=== PATIENT | male | born 1960 | race Caucasian/White ===

== ENCOUNTER → 2018-05-04 15:15 | Outpatient (CLI) | payer OTHER, SELFPAY ==
--- NOTE | 2018-05-04 | DI.MRI.S_ITS ---
PROCEDURE: MR HEAD/BRAIN WO/W CON INDICATIONS: MEMORY IMPAIRMENT TECHNIQUE: Noncontrast axial T1 spin echo, axial T2 fast spin echo, sagittal and axial FLAIR, coronal T2 fast spin echo, axial gradient echo, axial diffusion and ADC through the brain. After the administration of contrast, axial and coronal 3D VIBE or T1 spin echo with fat saturation through the brain. COMPARISON: None. FINDINGS: Image quality: Excellent. CSF Spaces: Basal cisterns are patent. No extra-axial fluid collections. Ventricles are normal in size and shape. Brain: No midline shift. No intracranial bleeds or masses. No abnormal intracranial enhancement. Mild scattered foci of T2 weighted hyperintensity are seen, which are attributed to early chronic small vessel ischemic change in a patient of this age. The brainstem appears normal. Diffusion-weighted images demonstrate no acute ischemic insults. No chronic ischemic insults. Normal intravascular flow voids are present. Skull and face: Calvarial marrow is normal in signal. Orbits appear normal. Sinuses: Moderate mucosal thickening is seen within the right maxillary sinus. There is a mucous retention cyst seen involving the left maxillary sinus. Mild mucosal thickening is seen elsewhere within the paranasal sinuses. Moderate to prominent abnormal fluid can be seen within the mastoid air cells. IMPRESSION: No significant intracranial abnormality is detected. Mild early chronic small vessel ischemic change can be seen. Paranasal sinus disease is seen, which is most prominent within the right maxillary sinus. Moderate to prominent abnormal mastoid air cell fluid seen on both sides. Please correlate for potential clinical findings of mastoiditis. Dictated by: Jewel Palacios M.D. on 05/04/2018 at 16:06 Approved by: Jewel Palacios M.D. on 05/04/2018 at 16:08
== END ==
PROVIDERS: PCP Family Medicine; Visit Provider Family Medicine
DX: R41.3 Other amnesia (principal); J32.0 Chronic maxillary sinusitis
CPT/HCPCS: 70553

== ENCOUNTER 2018-09-04 11:43 | Day surgery (SDC) | payer OTHER, SELFPAY ==
[2018-09-04] VITALS (7 sets, daily range): BP systolic 103–137; BP diastolic 70–94; PULSE 63–79; RESP 12–16; TEMP 36.2–36.9; O2SAT 93–98; BMI 26.1
--- NOTE | 2018-09-04 | PATH_ITS ---
[facility] Accession Number: [id number] . 01 Material submitted: . PART A: DUODENUM AND ANTRUM BIOPSIES PART B: GE JUNCTION BIOPSY PART C: COLON POLYP AT 55CM . 02 Diagnosis: A. Biopsies, Duodenum and Gastric Antrum: Mucosal hyperemia without associated significant inflammation involving duodenal and antral mucosa. Negative for evidence of Helicobacter on H/E stain. Negative for intestinal metaplasia of antral mucosa. Negative for dysplasia and malignancy. . B. Gastroesophageal Junction, Biopsies: Fragments of gastric cardia-type mucosa with mild chronic inflammation. No squamous epithelium identified. Negative for evidence of Helicobacter on H/E stain. Negative for intestinal metaplasia. Negative for dysplasia and malignancy. . C. Biopsy, Colon Polyp at 55 cm: Single polypoid-shaped fragment of colon mucosa associated with prominent mucosal lymphoid aggregate. Negative for dysplasia and malignancy. MRV/09/06/2018 . 02 Electronically signed: . Erick Rodgers MD, Pathologist NPI- [id number] . 01 Gross description: . (A) Received in formalin, labeled duodenum / antrum BX, are two fragments of perry-mcclure tissue (each approximately 0.4 x 0.2 x 0.1 cm). Entirely submitted in cassette A1. (B) Received in formalin, labeled GE junction BX, are two fragments of perry-white tissue (each approximately 0.3 x 0.1 x 0.1 cm). Entirely submitted in cassette B1. (C) Received in formalin, labeled polyp @ 55 cm, are three fragments of perry-mcclure tissue (0.8 x 0.2 x 0.1 cm in aggregate). Entirely submitted in cassette C1. ([id number]) /MRV . 02 Pathologist provided ICD-10: K63.5 . 02 CPT . 804004, [id number], [id number] Performed at: 01 [facility] [address] [place] [address], [place], [place] [id number] MD Troy Monaco MD Phone: [phone] Performed at: 02 [facility] [address] [place], [place] [id number] MD Oksana Do MD Phone: [phone]
[2018-09-04] MEDS: SODIUM CHLORIDE 0.9% 1,000 ML 150 ML IV (12:48)
[2018-09-04] MEDS: LIDOCAINE 4% SOLN 50 ML 20 ML TOP (13:00)
--- NOTE | 2018-09-04 13:00 | PM.PREOP ---
Pre-operative Note Interval Note History & Physical reviewed/Exam performed by Physician: Yes Changes to H&P: No
[2018-09-04] MEDS: TETRACAINE/BENZOCAINE/BUTAMBEN (CETACAINE) BOTTLE 1 SPRAY TOP (13:01)
[2018-09-04] MEDS: MIDAZOLAM 5 MG/5 ML VIAL IV (13:23)
[2018-09-04] MEDS: fentaNYL 250 MCG/5 ML INJ IV (13:23)
--- NOTE | 2018-09-04 13:44 | P.OP_ITS ---
Operative Date/Time/Diagnoses Date of procedure: 09/04/18 Time of procedure: 13:40 Pre-op diagnosis: Anemia Screening Post-op diagnosis: same Procedure & Clinicians Procedure: Esophagogastroduodenoscopy with biopsies and colonoscopy to the cecum with polypectomy x1 Same procedure as scheduled: Yes Indications: No prior colonoscopy History of anemia Surgeon: Taylor Larsen Click Yes if Unassisted: Yes Anesthesia Type: Sedation (Versed 7 mg; fentanyl 200 mcg) Operative Notes Findings: 1. Mild duodenitis 2. Gastritis with several 2-3 mm ulcers in the antrum and fundus covered with fibrinous exudate 3. Very large hiatal hernia-approximately 10 cm with the esophageal hiatus at 40 cm and the mucosal junction at 30 cm. 4. Irregular Z-line with tongues of tissue could visually consistent with Benites's changes 5. Normal posterior oropharynx but unable to visualize the vocal cords well 6. Excellent prep 7. 3-4 mm sessile polyp at 55 cm from the anal verge. Removed with cold forcep s and retained for pathology 8. Short-segment diverticulosis with a few large pockets scattered between 20 and 35 cm from the anal verge Estimated Blood Loss (mL): 1 Procedure in detail: After obtaining informed consent, the patient was brought to the GI suite and placed in the left lateral decubitus position on the examina tion table. After placement of appropriate monitors, the patient was given incremental doses of Versed and Fentanyl until an appropriate level of sedation was achieved. A time out was held per SCOAP protocol. We began with EGD. A bite block was gently placed between the patient's teeth. The endoscope was lubricated and then passed into the patient's posterior oropharynx. The esophagus was cannulated under direct vision and the scope was passed to the second portion of the duodenum without difficulty. The scope was then withdrawn with careful examination of all areas of the upper GI tract and mucosa. In the stomach, the instrument was retroflexed and the GE junction examined. The scope was straightened and the procedure continued with examination of the remainder of the upper GI tract. Findings are noted above. Air was aspirated from the stomach and the endoscope gently removed from the esophagus. The examination table was turned and we continued with the colonoscopy. A digital rectal examination was performed and did not reveal any masses or obstructing lesions. The colonoscope was gently passed into the patient's anus and the entire colon navigated to the level of the cecum with minimal difficulty. Once in the cecum, the scope was withdrawn being sure to go before and beyond all mucosal folds and prominences and get an excellent examination. The findings are noted above. At the level of the rectal vault, the scope was retroflexed and the internal anal canal was examined. The scope was straightened and air aspirated from the colon. The instrument was removed from the patient's body and the procedure was concluded. The patient was allowed to awaken from sedation without difficulty and taken to the post-anesthesia care unit in good condition. Total sedation time was 34 min Total colonoscopy withdrawal time was 8 min and 31 sec Complications: none Condition: stable Disposition: PACU Plan for aftercare: 1. Discharge to home 2. We will contact you with pathology results and recommendations 3. Tentatively planned for next colonoscopy in 5 years or as clinically indicated 4. Increase omeprazole does to 20 mg twice daily. 5. Consider an alternative to meloxicam
--- NOTE | 2018-09-04 14:11 | SUR.PHASEII ---
brought in, pt still sedated, wakes easily, follows commands. VSS. d/c instructions discussed, both voiced an understanding.
--- NOTE | 2018-09-04 15:19 | SUR.PHASEII ---
Late entry: pt wanting to go home, assisted to dress by . pt steady when up, belly soft and no nausea. vss. Pt left unit in stable condiiton.
== END 2018-09-04 15:10 ==
PROVIDERS: PCP Family Medicine; Visit Provider Surgery
PROC: 0DJ08ZZ Inspection of Upper Intestinal Tract, Via Natural or Artificial Opening Endoscopic (ICD-10-PCS; CPT 43235; principal; 2018-09-04 13:00)
PROC: 0DJD8ZZ Inspection of Lower Intestinal Tract, Via Natural or Artificial Opening Endoscopic (ICD-10-PCS; CPT 45378; 2018-09-04 13:00)
DX: Z12.11 Encounter for screening for malignant neoplasm of colon (principal); D64.9 Anemia, unspecified; K29.70 Gastritis, unspecified, without bleeding; K29.80 Duodenitis without bleeding; K44.9 Diaphragmatic hernia without obstruction or gangrene; K57.30 Diverticulosis of large intestine without perforation or abscess without bleeding; K63.5 Polyp of colon
CPT/HCPCS: 45380; 43239; 99152; 99153; J2250; J3010

== ENCOUNTER → 2021-12-02 12:29 | Outpatient (CLI) | payer OTHER, SELFPAY ==
--- NOTE | 2021-12-02 12:35 | DI.RAD.S_ITS ---
PROCEDURE: XR LUMBAR SPINE 2-3V INDICATIONS: PAIN IN BACK TECHNIQUE: 3 views of the lumbar spine were acquired. COMPARISON: None. FINDINGS: Bones: 5 [id number] vertebrae are present. There is normal bony alignment. Mild multilevel disc space narrowing and endplate osteophyte formation, as well as facet hypertrophy throughout the mid and lower lumbar spine. No vertebral body compression fractures. No suspicious bony lesions. Soft tissues: Overlying bowel gas pattern is normal. No suspicious soft tissue calcifications. IMPRESSION: Multilevel degenerative disc and facet disease. No acute fracture. No osseous lesion. If symptoms and/or clinical suspicion for pathology persist, further assessment with repeat, or advanced imaging (e.g., CT, MRI, or bone scan) may be helpful for further assessment. Dictated by: Honorio Polo M.D. on 12/02/2021 at 13:53 Approved by: Honorio Polo M.D. on 12/02/2021 at 13:54
== END ==
PROVIDERS: Family Provider Family Medicine; PCP Family Medicine; Referring Provider Family Medicine; Visit Provider Family Medicine
DX: M51.36 Other intervertebral disc degeneration, lumbar region (principal); M54.50 Low back pain, unspecified
CPT/HCPCS: 72100

== ENCOUNTER 2022-01-20 08:15 | Outpatient (RCR) | payer OTHER, SELFPAY ==
--- NOTE | 2021-11-10 14:35 | PT.OIE ---
Current Diagnoses Parkinson's disease (11/10/21) Dorsalgia, unspecified (11/10/21) Visit Care Team Role Provider Type Miguel A Peng MD Attending Provider Physician Family Provider Primary Care Provider Referring Provider Specialty: Family Practice Address: [address] [place] [address], [id number] Email: [email or web address] Physical Therapy Initial Evaluation PT-OP-A Visit Information Start: 11/03/21 16:13 Freq: Status: Active Protocol: Document 11/10/21 09:00 AMB (Rec: 11/10/21 10:15 AMB [id number]) Out-Patient Physical Therapy Visit Information Visit Information Visit Type Initial Evaluation Visit Start Time 09:00 Visit Stop Time 09:45 Total Visit Minutes 45 Visit Number 1 PT-OP-B Current Condition Start: 11/03/21 16:13 Freq: Status: Active Protocol: Document 11/10/21 09:04 AMB (Rec: 11/10/21 09:20 AMB [id number]) Current Condition History of Current Condition Onset Date 2 years Current Complaints back pain/Parkinsons History of Current Condition Mirza has had Parkinsons for at least the last 3 years, works at [employer] which increases back pain. Works 24 hrs/week (reducing hours due to pain and difficulty moving with PD) . Lives with his who is having her own medical issues. 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 Previous PT helped a little mostly stretches. Back pain can go down the legs at times, but not always. In general feels better when moving, worst pain is when stationary (sitting). Treatment Goals Patient/Caregiver Goals Reduce back pain Prior Functional Status Baseline Function- ADL's Modified Independent Baseline Function- Mobility Modified Independent Current Functional Impairments (Reported) Functional Limitations- Mobility/Gait Limited in gait distance Functional Limitations- Work/School Difficulty reaching, climbs ladders at works Functional Limitations- Recreation/ Pain with sitting Hobbies Personal Factors Other Personal Factors That May Effect Parkinsons Therapy/Recovery PT-OP-E Functional Tests Start: 11/03/21 16:13 Freq: Status: Active Protocol: Document 11/10/21 10:22 AMB (Rec: 11/10/21 10:27 AMB [id number]) Functional Tests Five Times Sit to Stand Test Score 18 Comments no UE support Timed Up and Go (TUG) Score 17 Comments no AD TUG Impairment Rating 60 to <80% Impaired (Score 16- 17) PT-OP-G Mobility & Gait Start: 11/03/21 16:13 Freq: Status: Active Protocol: Document 11/10/21 10:22 AMB (Rec: 11/10/21 10:27 AMB [id number]) OP Mobility Evaluation Bed Mobility Rolling reports difficulty getting out of bed, dagmar managing sheets OP Gait Assessment Comments Gait Comments Enbloc gait without armswing, toe catching, no AD PT-OP-J Posture/Palpation/Skin Start: 11/03/21 16:13 Freq: Status: Active Protocol: Document 11/10/21 10:22 AMB (Rec: 11/10/21 10:27 AMB [id number]) Posture Evaluation Comments Posture Comments Moderate/severe thoracic kyphosis with L shoulder high in standing and forward/ laterally tilted head, right ribs more prominent with forward flexion Palpation Assessment Location One Palpation Location L>R QL Palpation Findings Soft Tissue Tightness,Muscle Guarding,Tenderness PT-OP-K Range of Motion Start: 11/03/21 16:13 Freq: Status: Active Protocol: Document 11/10/21 10:22 AMB (Rec: 11/10/21 10:27 AMB [id number]) Lumbar Spine Range of Motion Lumbar Spine Active Percentage Testing Position Standing Flexion 50 Extension 25 Lateral Flexion Left 50 Lateral Flexion Right 50 PT-OP-T Assessment and Plan Start: 11/03/21 16:13 Freq: Status: Active Protocol: Document 11/10/21 09:00 AMB (Rec: 11/10/21 10:31 AMB [id number]) Physical Therapy Assessment Rehab Potential Rehabilitation Potential Good Evaluation Complexity Number of Personal Factors/Comorbidities 1-2 Number of Body Systems Impaired 4 or More Clinical Presentation at Evaluation Evolving Impairments Impairments Activity Tolerance,Functional Activities,Pain,Posture,ROM Goals Four Impairment Gait Short Term Goal (STG) Mirza will improve his timed up and go score to less than 12 seconds to show a decreased risk of falling. STG Duration 4 weeks Party Plan Sales Unit Sales Leader Goal (LTG) Mirza will ambulate for 6 minutes over smooth terrain for at least 1,600ft to meet norms for men in their 60s. LTG Duration 12 weeks Three Impairment Pain Short Term Goal (STG) Mirza will perform a full squat with good body mechanics without an increase in his back pain. STG Duration 4 weeks Party Plan Sales Unit Sales Leader Goal (LTG) Mirza will work 8 hours with 4 /10 back pain or less. LTG Duration 12 weeks Two Impairment HEP Short Term Goal (STG) Mirza will be independent and consistent with an exercise program to improve his mobility. STG Duration 4 weeks One Impairment Transfers Short Term Goal (STG) Mirza will perform all bed mobility with 2/10 back pain or less. STG Duration 4 weeks Shelter Goal (LTG) Mirza will improve his 5x sit to stand time to 14 seconds. Assessment Summary Assessment Mirza attends physical therapy with worsening back pain. 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 He finds movement to be helpful for his pain, and feels the worst when he has been stationary. He presents with significant thoracic kyphosis, and gait changes consistent with at least moderate Parkinson's ( shuffling gait pattern, lack of any arm swing). He will benefit from physical therapy to help him improve his lumbar and thoracic mobility, decrease his pain and improve his overall mobility considering both his pain and his progressive neurological disease. Physical Therapy Plan Frequency and Duration Frequency of Treatment 2x/Week Duration of Treatment 12 weeks Plan of Care Start Date 11/10/21 Plan of Care End Date 02/02/22 Therapeutic Interventions Therapeutic Interventions Balance Training,Coordination Training,Gait Training,Home Exercise Program,Joint Mobilizations,Manual Therapy, Neuromuscular Re-education, Self-Care/Home Management, Therapeutic Activities, Therapeutic Exercises Modalities Cold Pack/Ice Massage,Electric Stimulation,Hot Packs Next Visit Focus/Plan Next Note Type Treatment Note Next Visit Plan Review beginning HEP: forward bend and forward rocking, pt requests manual therapy
--- NOTE | 2021-11-10 14:39 | PT.OPPOC ---
Physical, Occupational & Speech Therapy At [facility] Current Diagnoses Parkinson's disease (11/10/21) Dorsalgia, unspecified (11/10/21) Visit Care Team Role Provider Type Miguel A Peng MD Attending Provider Physician Family Provider Primary Care Provider Referring Provider Specialty: [facility] Practice Address: [address] [place] [address], [facility] Email: [email or web address] Plan Of Care PT-OP-T Assessment and Plan Start: 11/03/21 16:13 Freq: Status: Active Protocol: Document 11/10/21 09:00 AMB (Rec: 11/10/21 10:31 AMB [id number]) Physical Therapy Assessment Rehab Potential Rehabilitation Potential Good Evaluation Complexity Number of Personal Factors/Comorbidities 1-2 Number of Body Systems Impaired 4 or More Clinical Presentation at Evaluation Evolving Impairments Impairments Activity Tolerance,Functional Activities,Pain,Posture,ROM Goals Four Impairment Gait Short Term Goal (STG) Mirza will improve his timed up and go score to less than 12 seconds to show a decreased risk of falling. STG Duration 4 weeks Senior Living Goal (LTG) Mirza will ambulate for 6 minutes over smooth terrain for at least 1,600ft to meet norms for men in their 60s. LTG Duration 12 weeks Three Impairment Pain Short Term Goal (STG) Mirza will perform a full squat with good body mechanics without an increase in his back pain. STG Duration 4 weeks Art Instructor Goal (LTG) Mirza will work 8 hours with 4 /10 back pain or less. LTG Duration 12 weeks Two Impairment HEP Short Term Goal (STG) Mirza will be independant and consistent with an exercise program to improve his mobility. STG Duration 4 weeks One Impairment Transfers Short Term Goal (STG) Mirza will perform all bed mobility with 2/10 back pain or less. STG Duration 4 weeks Art Instructor Goal (LTG) Mirza will improve his 5x sit to stand time to 14 seconds. Assessment Summary Assessment Mirza attends physical therapy with worsening back pain. 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 He finds movement to be helpful for his pain, and feels the worst when he has been stationary. He presents with significant thoracic kyphosis, and gait changes consistent with at least moderate Parkinson's ( shuffling gait pattern, lack of any arm swing). He will benefit from physical therapy to help him improve his lumbar and thoracic mobility, decrease his pain and improve his overall mobility considering both his pain and his progressive neurological disease. Physical Therapy Plan Frequency and Duration Frequency of Treatment 2x/Week Duration of Treatment 12 weeks Plan of Care Start Date 11/10/21 Plan of Care End Date 02/02/22 Therapeutic Interventions Therapeutic Interventions Balance Training,Coordination Training,Gait Training,Home Exercise Program,Joint Mobilizations,Manual Therapy, Neuromuscular Re-education, Self-Care/Home Management, Therapeutic Activities, Therapeutic Exercises Modalities Cold Pack/Ice Massage,Electric Stimulation,Hot Packs Next Visit Focus/Plan Next Note Type Treatment Note Next Visit Plan Review beginning HEP: forward bend and forward rocking, pt requests manual therapy Plan of Care Dates Plan of Care Start Date 11/10/21 Plan of Care End Date 02/02/22 Electronically Signed by: Rain Tsai, PT 11/12/21 1541 If you are in agreement with this Plan of Care, please return a signed and dated copy. I have reviewed this Plan of Care and certify that the skilled therapy services above are required to meet the patient?s needs. Physician Signature Date Printed Name and Credentials Clinical Instructor Signature Printed Name and Credentials
--- NOTE | 2021-11-22 13:46 | PT.OTN ---
Current Diagnoses Parkinson's disease (11/22/21) Dorsalgia, unspecified (11/22/21) Physical Therapy Treatment Note PT-OP-A Visit Information Start: 11/03/21 16:13 Freq: Status: Active Protocol: Document 11/22/21 10:38 AMB (Rec: 11/22/21 10:47 AMB [id number]) Out-Patient Physical Therapy Visit Information Visit Information Visit Type Treatment Note Visit Start Time 10:30 Visit Stop Time 11:15 Total Visit Minutes 45 Visit Number 2 PT-OP-B Current Condition Start: 11/03/21 16:13 Freq: Status: Active Protocol: Document 11/10/21 09:04 AMB (Rec: 11/10/21 09:20 AMB [id number]) Current Condition History of Current Condition Onset Date 2 years Current Complaints back pain/Parkinsons History of Current Condition Mirza has had Parkinsons for at least the last 3 years, works at [employer] which increases back pain. Works 24 hrs/week (reducing hours due to pain and difficulty moving with PD) . Lives with his who is having her own medical issues. 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 Previous PT helped a little mostly stretches. Back pain can go down the legs at times, but not always. In general feels better when moving, worst pain is when stationary (sitting). Treatment Goals Patient/Caregiver Goals Reduce back pain Prior Functional Status Baseline Function- ADL's Modified Independent Baseline Function- Mobility Modified Independent Current Functional Impairments (Reported) Functional Limitations- Mobility/Gait Limited in gait distance Functional Limitations- Work/School Difficulty reaching, climbs ladders at works Functional Limitations- Recreation/ Pain with sitting Hobbies Personal Factors Other Personal Factors That May Effect Parkinsons Therapy/Recovery PT-OP-C Subjective Start: 11/03/21 16:13 Freq: Status: Active Protocol: Document 11/22/21 10:38 AMB (Rec: 11/22/21 10:47 AMB [id number]) OP-PT Subjective Patient Comments Patient Comments iMrza reports continued feeling of intermittent decreased foot sensation PT-OP-E Functional Tests Start: 11/03/21 16:13 Freq: Status: Active Protocol: Document 11/10/21 10:22 AMB (Rec: 11/10/21 10:27 AMB [id number]) Functional Tests Five Times Sit to Stand Test Score 18 Comments no UE support Timed Up and Go (TUG) Score 17 Comments no AD TUG Impairment Rating 60 to <80% Impaired (Score 16- 17) PT-OP-G Mobility & Gait Start: 11/03/21 16:13 Freq: Status: Active Protocol: Document 11/10/21 10:22 AMB (Rec: 11/10/21 10:27 AMB [id number]) OP Mobility Evaluation Bed Mobility Rolling reports difficulty getting out of bed, dagmar managing sheets OP Gait Assessment Comments Gait Comments Enbloc gait without armswing, toe catching, no AD PT-OP-J Posture/Palpation/Skin Start: 11/03/21 16:13 Freq: Status: Active Protocol: Document 11/10/21 10:22 AMB (Rec: 11/10/21 10:27 AMB [id number]) Posture Evaluation Comments Posture Comments Moderate/severe thoracic kyphosis with L shoulder high in standing and forward/ laterally tilted head, right ribs more prominent with forward flexion Palpation Assessment Location One Palpation Location L>R QL Palpation Findings Soft Tissue Tightness,Muscle Guarding,Tenderness PT-OP-K Range of Motion Start: 11/03/21 16:13 Freq: Status: Active Protocol: Document 11/10/21 10:22 AMB (Rec: 11/10/21 10:27 AMB [id number]) Lumbar Spine Range of Motion Lumbar Spine Active Percentage Testing Position Standing Flexion 50 Extension 25 Lateral Flexion Left 50 Lateral Flexion Right 50 PT-OP-Q Treatments Start: 11/03/21 16:13 Freq: Status: Active Protocol: Document 11/22/21 09:00 AMB (Rec: 11/22/21 13:46 AMB [id number]) Therapeutic Activity Therapeutic Activity 1 Name bed mobility Comments Cued using momemtum, log roll and sidelying to sit. Increased pain even on firm table. Manual Therapy Treatment Soft Tissue Mobilization 1 Body Location paraspinals Mobilization Type Cross-Friction,Myofascial Release Body Position Sidelying Neuro Re-Education Treatment Coordination Activities seated roatation Reps/Duration 5 ea direction fwd bend Reps/Duration 10 ea Comments with shoulders below 90 degree abduction for pain rock and reach Reps/Duration 10 ea Comments holding on to kitchen counter PT-OP-T Assessment and Plan Start: 11/03/21 16:13 Freq: Status: Active Protocol: Document 11/22/21 09:00 AMB (Rec: 11/22/21 13:46 [facility] [id number]) Physical Therapy Assessment Goals Four Impairment Gait Short Term Goal (STG) Mirza will improve his timed up and go score to less than 12 seconds to show a decreased risk of falling. STG Duration 4 weeks Method Consultant Goal (LTG) Mirza will ambulate for 6 minutes over smooth terrain for at least 1,600ft to meet norms for men in their 60s. LTG Duration 12 weeks Three Impairment Pain Short Term Goal (STG) Mirza will perform a full squat with good body mechanics without an increase in his back pain. STG Duration 4 weeks Method Consultant Goal (LTG) Mirza will work 8 hours with 4 /10 back pain or less. LTG Duration 12 weeks Two Impairment HEP Short Term Goal (STG) Mirza will be independant and consistent with an exercise program to improve his mobility. STG Duration 4 weeks One Impairment Transfers Short Term Goal (STG) Mirza will perform all bed mobility with 2/10 back pain or less. STG Duration 4 weeks Method Consultant Goal (LTG) Mirza will improve his 5x sit to stand time to 14 seconds. Assessment Summary Assessment Mirza showed difficulty initiating movement, difficulty with posture, did do better once going with exercises today and does appreciate manual therapy. Will need to work on body mechanics, bed mobility more as this does increase his pain . Physical Therapy Plan Next Visit Focus/Plan Next Note Type Treatment Note Next Visit Plan Review beginning HEP: forward bend and forward rocking, pt requests manual therapy
--- NOTE | 2021-11-24 11:21 | PT.OTN ---
Current Diagnoses Parkinson's disease (11/24/21) Dorsalgia, unspecified (11/24/21) Physical Therapy Treatment Note PT-OP-A Visit Information Start: 11/03/21 16:13 Freq: Status: Active Protocol: Document 11/24/21 09:09 AMB (Rec: 11/24/21 09:57 AMB [id number]) Out-Patient Physical Therapy Visit Information Visit Information Visit Type Initial Evaluation Visit Start Time 09:00 Visit Stop Time 09:45 Total Visit Minutes 45 Visit Number 3 PT-OP-B Current Condition Start: 11/03/21 16:13 Freq: Status: Active Protocol: Document 11/10/21 09:04 AMB (Rec: 11/10/21 09:20 AMB [id number]) Current Condition History of Current Condition Onset Date 2 years Current Complaints back pain/Parkinsons History of Current Condition Mirza has had Parkinsons for at least the last 3 years, works at [employer] the [employer] at [email or web address] which increases back pain. Works 24 hrs/week (reducing hours due to pain and difficulty moving with PD) . Lives with his who is having her own medical issues. 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 Previous PT helped a little mostly stretches. Back pain can go down the legs at times, but not always. In general feels better when moving, worst pain is when stationary (sitting). Treatment Goals Patient/Caregiver Goals Reduce back pain Prior Functional Status Baseline Function- ADL's Modified Independent Baseline Function- Mobility Modified Independent Current Functional Impairments (Reported) Functional Limitations- Mobility/Gait Limited in gait distance Functional Limitations- Work/School Difficulty reaching, climbs ladders at works Functional Limitations- Recreation/ Pain with sitting Hobbies Personal Factors Other Personal Factors That May Effect Parkinsons Therapy/Recovery PT-OP-C Subjective Start: 11/03/21 16:13 Freq: Status: Active Protocol: Document 11/24/21 09:09 AMB (Rec: 11/24/21 09:57 AMB [id number]) OP-PT Subjective Patient Comments Patient Comments Mirza is reporting it's really difficult to get moving in the morning. PT-OP-E Functional Tests Start: 11/03/21 16:13 Freq: Status: Active Protocol: Document 11/10/21 10:22 AMB (Rec: 11/10/21 10:27 AMB [id number]) Functional Tests Five Times Sit to Stand Test Score 18 Comments no UE support Timed Up and Go (TUG) Score 17 Comments no AD TUG Impairment Rating 60 to <80% Impaired (Score 16- 17) PT-OP-G Mobility & Gait Start: 11/03/21 16:13 Freq: Status: Active Protocol: Document 11/10/21 10:22 AMB (Rec: 11/10/21 10:27 AMB [id number]) OP Mobility Evaluation Bed Mobility Rolling reports difficulty getting out of bed, dagmar managing sheets OP Gait Assessment Comments Gait Comments Enbloc gait without armswing, toe catching, no AD PT-OP-J Posture/Palpation/Skin Start: 11/03/21 16:13 Freq: Status: Active Protocol: Document 11/10/21 10:22 AMB (Rec: 11/10/21 10:27 AMB [id number]) Posture Evaluation Comments Posture Comments Moderate/severe thoracic kyphosis with L shoulder high in standing and forward/ laterally tilted head, right ribs more prominent with forward flexion Palpation Assessment Location One Palpation Location L>R QL Palpation Findings Soft Tissue Tightness,Muscle Guarding,Tenderness PT-OP-K Range of Motion Start: 11/03/21 16:13 Freq: Status: Active Protocol: Document 11/10/21 10:22 AMB (Rec: 11/10/21 10:27 AMB [id number]) Lumbar Spine Range of Motion Lumbar Spine Active Percentage Testing Position Standing Flexion 50 Extension 25 Lateral Flexion Left 50 Lateral Flexion Right 50 PT-OP-Q Treatments Start: 11/03/21 16:13 Freq: Status: Active Protocol: Document 11/24/21 11:06 AMB (Rec: 11/24/21 11:21 AMB [id number]) Therapeutic Exercises Standing Exercises pec stretch Side bilateral Reps/Minutes 30x2 Therapeutic Activity Therapeutic Activity 1 Name Bed mobility Reps/Minutes 15 min Comments sit to sidelying; sidelying to supine, working to manage covers, then supine to sit. Pt requires cues/ then Cyndee. Gait Training Gait Activity 1 Description smooth surface, no AD Treatment Focus 200' Comments cued arm swing, speed, step length, a couple of toe catches where patient had a near LOB PT-OP-T Assessment and Plan Start: 11/03/21 16:13 Freq: Status: Active Protocol: Document 11/24/21 11:06 AMB (Rec: 11/24/21 11:21 AMB [id number]) Physical Therapy Assessment Goals Four Impairment Gait Short Term Goal (STG) Mirza will improve his timed up and go score to less than 12 seconds to show a decreased risk of falling. STG Duration 4 weeks Intermediate Goal (LTG) Mirza will ambulate for 6 minutes over smooth terrain for at least 1,600ft to meet norms for men in their 60s. LTG Duration 12 weeks Three Impairment Pain Short Term Goal (STG) Mirza will perform a full squat with good body mechanics without an increase in his back pain. STG Duration 4 weeks Intermediate Goal (LTG) Mirza will work 8 hours with 4 /10 back pain or less. LTG Duration 12 weeks Two Impairment HEP Short Term Goal (STG) Mirza will be independant and consistent with an exercise program to improve his mobility. STG Duration 4 weeks One Impairment Transfers Short Term Goal (STG) Mirza will perform all bed mobility with 2/10 back pain or less. STG Duration 4 weeks Cmo Goal (LTG) Mirza will improve his 5x sit to stand time to 14 seconds. Assessment Summary Assessment Mirza had difficulty with gait to day, continues to have difficulty initiating movement . Pain with bed mobility, does appreciate manual but lasts a couple hours only. Physical Therapy Plan Next Visit Focus/Plan Next Note Type Treatment Note Next Visit Plan Review beginning HEP: forward bend and forward rocking, pt requests manual therapy
--- NOTE | 2021-11-29 13:39 | PT.OTN ---
Current Diagnoses Parkinson's disease (11/29/21) Dorsalgia, unspecified (11/29/21) Physical Therapy Treatment Note PT-OP-A Visit Information Start: 11/03/21 16:13 Freq: Status: Active Protocol: Document 11/29/21 09:05 AMB (Rec: 11/29/21 10:01 AMB [id number]) Out-Patient Physical Therapy Visit Information Visit Information Visit Type Treatment Note Visit Start Time 09:00 Visit Stop Time 09:45 Total Visit Minutes 45 Visit Number 4 PT-OP-B Current Condition Start: 11/03/21 16:13 Freq: Status: Active Protocol: Document 11/10/21 09:04 AMB (Rec: 11/10/21 09:20 AMB [id number]) Current Condition History of Current Condition Onset Date 2 years Current Complaints back pain/Parkinsons History of Current Condition Mirza has had Parkinsons for at least the last 3 years, works at [employer] at [employer] which increases back pain. Works 24 hrs/week (reducing hours due to pain and difficulty moving with PD) . Lives with his who is having her own medical issues. 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 Previous PT helped a little mostly stretches. Back pain can go down the legs at times, but not always. In general feels better when moving, worst pain is when stationary (sitting). Treatment Goals Patient/Caregiver Goals Reduce back pain Prior Functional Status Baseline Function- ADL's Modified Independent Baseline Function- Mobility Modified Independent Current Functional Impairments (Reported) Functional Limitations- Mobility/Gait Limited in gait distance Functional Limitations- Work/School Difficulty reaching, climbs ladders at works Functional Limitations- Recreation/ Pain with sitting Hobbies Personal Factors Other Personal Factors That May Effect Parkinsons Therapy/Recovery PT-OP-C Subjective Start: 11/03/21 16:13 Freq: Status: Active Protocol: Document 11/29/21 09:00 AMB (Rec: 11/29/21 13:38 AMB [id number]) OP-PT Subjective Patient Comments Patient Comments Mirza attends PT with his today. He had a bad day yesterday standing in the bathroom, almost lost his balance. Difficult at work. PT-OP-E Functional Tests Start: 11/03/21 16:13 Freq: Status: Active Protocol: Document 11/10/21 10:22 AMB (Rec: 11/10/21 10:27 AMB [id number]) Functional Tests Five Times Sit to Stand Test Score 18 Comments no UE support Timed Up and Go (TUG) Score 17 Comments no AD TUG Impairment Rating 60 to <80% Impaired (Score 16- 17) PT-OP-G Mobility & Gait Start: 11/03/21 16:13 Freq: Status: Active Protocol: Document 11/10/21 10:22 AMB (Rec: 11/10/21 10:27 AMB [id number]) OP Mobility Evaluation Bed Mobility Rolling reports difficulty getting out of bed, dagmar managing sheets OP Gait Assessment Comments Gait Comments Enbloc gait without armswing, toe catching, no AD PT-OP-J Posture/Palpation/Skin Start: 11/03/21 16:13 Freq: Status: Active Protocol: Document 11/10/21 10:22 AMB (Rec: 11/10/21 10:27 AMB [id number]) Posture Evaluation Comments Posture Comments Moderate/severe thoracic kyphosis with L shoulder high in standing and forward/ laterally tilted head, right ribs more prominent with forward flexion Palpation Assessment Location One Palpation Location L>R QL Palpation Findings Soft Tissue Tightness,Muscle Guarding,Tenderness PT-OP-K Range of Motion Start: 11/03/21 16:13 Freq: Status: Active Protocol: Document 11/10/21 10:22 AMB (Rec: 11/10/21 10:27 AMB [id number]) Lumbar Spine Range of Motion Lumbar Spine Active Percentage Testing Position Standing Flexion 50 Extension 25 Lateral Flexion Left 50 Lateral Flexion Right 50 PT-OP-Q Treatments Start: 11/03/21 16:13 Freq: Status: Active Protocol: Document 11/29/21 09:00 AMB (Rec: 11/29/21 13:38 AMB [id number]) Neuro Re-Education Treatment Coordination Activities lateral step Reps/Duration 10 forward step Reps/Duration 10 Comments with 1 arm, and UE support at counter seated roatation Reps/Duration 5 ea direction fwd bend Reps/Duration 10 ea Comments with shoulders below 90 degree abduction for pain rock and reach Reps/Duration 10 ea Comments holding on to kitchen counter PT-OP-T Assessment and Plan Start: 11/03/21 16:13 Freq: Status: Active Protocol: Document 11/29/21 09:00 AMB (Rec: 11/29/21 13:38 AMB [id number]) Physical Therapy Assessment Goals Four Impairment Gait Short Term Goal (STG) Mirza will improve his timed up and go score to less than 12 seconds to show a decreased risk of falling. STG Duration 4 weeks Mcfp Goal (LTG) Mirza will ambulate for 6 minutes over smooth terrain for at least 1,600ft to meet norms for men in their 60s. LTG Duration 12 weeks Three Impairment Pain Short Term Goal (STG) Mirza will perform a full squat with good body mechanics without an increase in his back pain. STG Duration 4 weeks [employer] Tip Catcher Goal (LTG) Mirza will work 8 hours with 4 /10 back pain or less. LTG Duration 12 weeks Two Impairment HEP Short Term Goal (STG) Mirza will be independant and consistent with an exercise program to improve his mobility. STG Duration 4 weeks One Impairment Transfers Short Term Goal (STG) Mirza will perform all bed mobility with 2/10 back pain or less. STG Duration 4 weeks Filter Tip Catcher Goal (LTG) Mirza will improve his 5x sit to stand time to 14 seconds. Assessment Summary Assessment Mirza and his were in attendance today. Did discuss option of a walker in the future, but Mirza's greatest risk is when he first starts walking and walker could be more of a visual block for that. Encouraged them to follow up with neurologist regarding medication to see if there is anything more that they can do. Mirza did have full light touch sensation in bilateral feet today. Physical Therapy Plan Next Visit Focus/Plan Next Note Type Treatment Note Next Visit Plan Review beginning HEP: forward bend and forward rocking, pt requests manual therapy
--- NOTE | 2021-12-09 12:48 | PT.OTN ---
Current Diagnoses Parkinson's disease (12/09/21) Dorsalgia, unspecified (12/09/21) Physical Therapy Treatment Note PT-OP-A Visit Information Start: 11/03/21 16:13 Freq: Status: Active Protocol: Document 12/09/21 09:03 AMB (Rec: 12/09/21 09:50 AMB [id number]) Out-Patient Physical Therapy Visit Information Visit Information Visit Type Treatment Note Visit Start Time 09:00 Visit Stop Time 09:45 Total Visit Minutes 45 Visit Number 5 PT-OP-B Current Condition Start: 11/03/21 16:13 Freq: Status: Active Protocol: Document 11/10/21 09:04 AMB (Rec: 11/10/21 09:20 AMB [id number]) Current Condition History of Current Condition Onset Date 2 years Current Complaints back pain/Parkinsons History of Current Condition Mirza has had Parkinsons for at least the last 3 years, works at [employer] at [employer] which increases back pain. Works 24 hrs/week (reducing hours due to pain and difficulty moving with PD) . Lives with his who is having her own medical issues. 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 Previous PT helped a little mostly stretches. Back pain can go down the legs at times, but not always. In general feels better when moving, worst pain is when stationary (sitting). Treatment Goals Patient/Caregiver Goals Reduce back pain Prior Functional Status Baseline Function- ADL's Modified Independent Baseline Function- Mobility Modified Independent Current Functional Impairments (Reported) Functional Limitations- Mobility/Gait Limited in gait distance Functional Limitations- Work/School Difficulty reaching, climbs ladders at works Functional Limitations- Recreation/ Pain with sitting Hobbies Personal Factors Other Personal Factors That May Effect Parkinsons Therapy/Recovery PT-OP-C Subjective Start: 11/03/21 16:13 Freq: Status: Active Protocol: Document 12/09/21 09:03 AMB (Rec: 12/09/21 09:50 AMB [id number]) OP-PT Subjective Patient Comments Patient Comments Did get Xray PT-OP-E Functional Tests Start: 11/03/21 16:13 Freq: Status: Active Protocol: Document 11/10/21 10:22 AMB (Rec: 11/10/21 10:27 AMB [id number]) Functional Tests Five Times Sit to Stand Test Score 18 Comments no UE support Timed Up and Go (TUG) Score 17 Comments no AD TUG Impairment Rating 60 to <80% Impaired (Score 16- 17) PT-OP-G Mobility & Gait Start: 11/03/21 16:13 Freq: Status: Active Protocol: Document 11/10/21 10:22 AMB (Rec: 11/10/21 10:27 AMB [id number]) OP Mobility Evaluation Bed Mobility Rolling reports difficulty getting out of bed, dagmar managing sheets OP Gait Assessment Comments Gait Comments Enbloc gait without armswing, toe catching, no AD PT-OP-J Posture/Palpation/Skin Start: 11/03/21 16:13 Freq: Status: Active Protocol: Document 11/10/21 10:22 AMB (Rec: 11/10/21 10:27 AMB [id number]) Posture Evaluation Comments Posture Comments Moderate/severe thoracic kyphosis with L shoulder high in standing and forward/ laterally tilted head, right ribs more prominent with forward flexion Palpation Assessment Location One Palpation Location L>R QL Palpation Findings Soft Tissue Tightness,Muscle Guarding,Tenderness PT-OP-K Range of Motion Start: 11/03/21 16:13 Freq: Status: Active Protocol: Document 11/10/21 10:22 AMB (Rec: 11/10/21 10:27 AMB [id number]) Lumbar Spine Range of Motion Lumbar Spine Active Percentage Testing Position Standing Flexion 50 Extension 25 Lateral Flexion Left 50 Lateral Flexion Right 50 PT-OP-Q Treatments Start: 11/03/21 16:13 Freq: Status: Active Protocol: Document 12/09/21 12:13 AMB (Rec: 12/09/21 12:17 AMB [id number]) Neuro Re-Education Treatment Coordination Activities seated forward step Comments with UE abduction, forward step- challenging seated Details toe tap Reps/Duration alternating for speed PT-OP-T Assessment and Plan Start: 11/03/21 16:13 Freq: Status: Active Protocol: Document 12/09/21 12:17 AMB (Rec: 12/09/21 12:48 AMB [id number]) Physical Therapy Assessment Goals Four Impairment Gait Short Term Goal (STG) Mirza will improve his timed up and go score to less than 12 seconds to show a decreased risk of falling. STG Duration 4 weeks [facility] Goal (LTG) Mirza will ambulate for 6 minutes over smooth terrain for at least 1,600ft to meet norms for men in their 60s. LTG Duration 12 weeks Three Impairment Pain Short Term Goal (STG) Mirza will perform a full squat with good body mechanics without an increase in his back pain. STG Duration 4 weeks [facility] Goal (LTG) Mirza will work 8 hours with 4 /10 back pain or less. LTG Duration 12 weeks Two Impairment HEP Short Term Goal (STG) Mirza will be independant and consistent with an exercise program to improve his mobility. STG Duration 4 weeks One Impairment Transfers Short Term Goal (STG) Mirza will perform all bed mobility with 2/10 back pain or less. STG Duration 4 weeks Sm[employer] Goal (LTG) Mirza will improve his 5x sit to stand time to 14 seconds. Assessment Summary Assessment Mirza had a lumbar X-ray but has not reviewed the results with his doctor yet. NO significant changes with his neurologist. Having difficult time at work. Difficult time doing HEP at home, due to lack of space, therefore gave him a seated options for coordination and to work on amplitude of movement. Did discuss assistive device, pt does not think there is enough room in his house for a walker, does know that it won' t work well for him in the future. Physical Therapy Plan Next Visit Focus/Plan Next Note Type Treatment Note Next Visit Plan Review beginning HEP: forward bend and forward rocking, pt requests manual therapy
--- NOTE | 2021-12-24 12:02 | PT.OTN ---
Current Diagnoses Parkinson's disease (12/24/21) Dorsalgia, unspecified (12/24/21) Physical Therapy Treatment Note PT-OP-A Visit Information Start: 11/03/21 16:13 Freq: Status: Active Protocol: Document 12/24/21 08:18 AMB (Rec: 12/24/21 08:59 AMB [id number]) Out-Patient Physical Therapy Visit Information Visit Information Visit Type Treatment Note Visit Start Time 09:00 Visit Stop Time 09:45 Total Visit Minutes 45 Visit Number 6 PT-OP-B Current Condition Start: 11/03/21 16:13 Freq: Status: Active Protocol: Document 11/10/21 09:04 AMB (Rec: 11/10/21 09:20 AMB [id number]) Current Condition History of Current Condition Onset Date 2 years Current Complaints back pain/Parkinsons History of Current Condition Mirza has had Parkinsons for at least the last 3 years, works at [employer] at [employer] which increases back pain. Works 24 hrs/week (reducing hours due to pain and difficulty moving with PD) . Lives with his who is having her own medical issues. 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 Previous PT helped a little mostly stretches. Back pain can go down the legs at times, but not always. In general feels better when moving, worst pain is when stationary (sitting). Treatment Goals Patient/Caregiver Goals Reduce back pain Prior Functional Status Baseline Function- ADL's Modified Independent Baseline Function- Mobility Modified Independent Current Functional Impairments (Reported) Functional Limitations- Mobility/Gait Limited in gait distance Functional Limitations- Work/School Difficulty reaching, climbs ladders at works Functional Limitations- Recreation/ Pain with sitting Hobbies Personal Factors Other Personal Factors That May Effect Parkinsons Therapy/Recovery PT-OP-C Subjective Start: 11/03/21 16:13 Freq: Status: Active Protocol: Document 12/24/21 08:18 AMB (Rec: 12/24/21 08:59 AMB [id number]) OP-PT Subjective Patient Comments Patient Comments Went on a new medicine, got put on steroids, started that yesterday, having a difficult time with sleep because of it. Getting a different work schedule and that may make PT more challenging. PT-OP-E Functional Tests Start: 11/03/21 16:13 Freq: Status: Active Protocol: Document 11/10/21 10:22 AMB (Rec: 11/10/21 10:27 AMB [id number]) Functional Tests Five Times Sit to Stand Test Score 18 Comments no UE support Timed Up and Go (TUG) Score 17 Comments no AD TUG Impairment Rating 60 to <80% Impaired (Score 16- 17) PT-OP-G Mobility & Gait Start: 11/03/21 16:13 Freq: Status: Active Protocol: Document 11/10/21 10:22 AMB (Rec: 11/10/21 10:27 AMB [id number]) OP Mobility Evaluation Bed Mobility Rolling reports difficulty getting out of bed, dagmar managing sheets OP Gait Assessment Comments Gait Comments Enbloc gait without armswing, toe catching, no AD PT-OP-J Posture/Palpation/Skin Start: 11/03/21 16:13 Freq: Status: Active Protocol: Document 11/10/21 10:22 AMB (Rec: 11/10/21 10:27 AMB [id number]) Posture Evaluation Comments Posture Comments Moderate/severe thoracic kyphosis with L shoulder high in standing and forward/ laterally tilted head, right ribs more prominent with forward flexion Palpation Assessment Location One Palpation Location L>R QL Palpation Findings Soft Tissue Tightness,Muscle Guarding,Tenderness PT-OP-K Range of Motion Start: 11/03/21 16:13 Freq: Status: Active Protocol: Document 11/10/21 10:22 AMB (Rec: 11/10/21 10:27 AMB [id number]) Lumbar Spine Range of Motion Lumbar Spine Active Percentage Testing Position Standing Flexion 50 Extension 25 Lateral Flexion Left 50 Lateral Flexion Right 50 PT-OP-Q Treatments Start: 11/03/21 16:13 Freq: Status: Active Protocol: Document 12/24/21 11:55 AMB (Rec: 12/24/21 11:58 AMB [id number]) Therapeutic Exercises Standing Exercises t band rows Side bilateral Reps/Minutes 2x10 Comments with focus on posture pec stretch Side bilateral Reps/Minutes 30x2 Manual Therapy Treatment Soft Tissue Mobilization 1 Body Location paraspinals/ QL Mobilization Type Cross-Friction,Myofascial Release Body Position Sidelying Neuro Re-Education Treatment Coordination Activities forward step Reps/Duration 10 Comments with 1 arm, and UE support at counter seated roatation Reps/Duration 5 ea direction fwd bend Reps/Duration 10 ea Comments with shoulders below 90 degree abduction for pain PT-OP-T Assessment and Plan Start: 11/03/21 16:13 Freq: Status: Active Protocol: Document 12/24/21 08:18 AMB (Rec: 12/24/21 08:59 AMB [id number]) Physical Therapy Assessment Goals Four Impairment Gait Short Term Goal (STG) Mirza will improve his timed up and go score to less than 12 seconds to show a decreased risk of falling. STG Duration 4 weeks Detention Goal (LTG) Mirza will ambulate for 6 minutes over smooth terrain for at least 1,600ft to meet norms for men in their 60s. LTG Duration 12 weeks Three Impairment Pain Short Term Goal (STG) Mirza will perform a full squat with good body mechanics without an increase in his back pain. STG Duration 4 weeks Detention Goal (LTG) Mirza will work 8 hours with 4 /10 back pain or less. LTG Duration 12 weeks Two Impairment HEP Short Term Goal (STG) Mirza will be independant and consistent with an exercise program to improve his mobility. STG Duration 4 weeks One Impairment Transfers Short Term Goal (STG) Mirza will perform all bed mobility with 2/10 back pain or less. STG Duration 4 weeks [employer]on Catcher Goal (LTG) Mirza will improve his 5x sit to stand time to 14 seconds. Assessment Summary Assessment Mirza is feeling crazy being on steroids. 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 He still wants to work, and denies any recent falls, but has had freezing episodes. Back pain continues, but hopefully steroid will be helpful. Manual therapy continued per pt request, with continued work on initiating movement/ gait/working on freezing episodes for safety as well as ROM to reduce back pain. Physical Therapy Plan Next Visit Focus/Plan Next Note Type Treatment Note Next Visit Plan Review beginning HEP: forward bend and forward rocking, pt requests manual therapy
--- NOTE | 2021-12-28 16:30 | PT.OTN ---
Current Diagnoses Parkinson's disease (12/28/21) Dorsalgia, unspecified (12/28/21) Physical Therapy Treatment Note PT-OP-A Visit Information Start: 11/03/21 16:13 Freq: Status: Active Protocol: Document 12/29/21 08:15 AMB (Rec: 12/29/21 16:30 AMB [id number]) Out-Patient Physical Therapy Visit Information Visit Information Visit Type Treatment Note Visit Start Time 08:15 Visit Stop Time 09:00 Total Visit Minutes 45 Visit Number 7 PT-OP-B Current Condition Start: 11/03/21 16:13 Freq: Status: Active Protocol: Document 11/10/21 09:04 AMB (Rec: 11/10/21 09:20 AMB [id number]) Current Condition History of Current Condition Onset Date 2 years Current Complaints back pain/Parkinsons History of Current Condition Mirza has had Parkinsons for at least the last 3 years, works at [employer] which increases back pain. Works 24 hrs/week (reducing hours due to pain and difficulty moving with PD) . Lives with his who is having her own medical issues. 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 Previous PT helped a little mostly stretches. Back pain can go down the legs at times, but not always. In general feels better when moving, worst pain is when stationary (sitting). Treatment Goals Patient/Caregiver Goals Reduce back pain Prior Functional Status Baseline Function- ADL's Modified Independent Baseline Function- Mobility Modified Independent Current Functional Impairments (Reported) Functional Limitations- Mobility/Gait Limited in gait distance Functional Limitations- Work/School Difficulty reaching, climbs ladders at works Functional Limitations- Recreation/ Pain with sitting Hobbies Personal Factors Other Personal Factors That May Effect Parkinsons Therapy/Recovery PT-OP-C Subjective Start: 11/03/21 16:13 Freq: Status: Active Protocol: Document 12/29/21 08:15 AMB (Rec: 12/29/21 16:30 AMB [id number]) OP-PT Subjective Patient Comments Patient Comments Stopped taking steroids. difficulty switching to days. Still feels like there isn't room in the house to do exercises. PT-OP-E Functional Tests Start: 11/03/21 16:13 Freq: Status: Active Protocol: Document 11/10/21 10:22 AMB (Rec: 11/10/21 10:27 AMB [id number]) Functional Tests Five Times Sit to Stand Test Score 18 Comments no UE support Timed Up and Go (TUG) Score 17 Comments no AD TUG Impairment Rating 60 to <80% Impaired (Score 16- 17) PT-OP-G Mobility & Gait Start: 11/03/21 16:13 Freq: Status: Active Protocol: Document 11/10/21 10:22 AMB (Rec: 11/10/21 10:27 AMB [id number]) OP Mobility Evaluation Bed Mobility Rolling reports difficulty getting out of bed, dagmar managing sheets OP Gait Assessment Comments Gait Comments Enbloc gait without armswing, toe catching, no AD PT-OP-J Posture/Palpation/Skin Start: 11/03/21 16:13 Freq: Status: Active Protocol: Document 11/10/21 10:22 AMB (Rec: 11/10/21 10:27 AMB [id number]) Posture Evaluation Comments Posture Comments Moderate/severe thoracic kyphosis with L shoulder high in standing and forward/ laterally tilted head, right ribs more prominent with forward flexion Palpation Assessment Location One Palpation Location L>R QL Palpation Findings Soft Tissue Tightness,Muscle Guarding,Tenderness PT-OP-K Range of Motion Start: 11/03/21 16:13 Freq: Status: Active Protocol: Document 11/10/21 10:22 AMB (Rec: 11/10/21 10:27 AMB [id number]) Lumbar Spine Range of Motion Lumbar Spine Active Percentage Testing Position Standing Flexion 50 Extension 25 Lateral Flexion Left 50 Lateral Flexion Right 50 PT-OP-Q Treatments Start: 11/03/21 16:13 Freq: Status: Active Protocol: Document 12/29/21 08:15 AMB (Rec: 12/29/21 16:30 AMB [id number]) Manual Therapy Treatment Soft Tissue Mobilization 1 Body Location paraspinals/ QL Mobilization Type Cross-Friction,Myofascial Release Body Position Sidelying Neuro Re-Education Treatment Coordination Activities hurdles Comments big step- challenging, better with UE support forward step Reps/Duration 10 Comments with 1 arm, and UE support at counter rock and reach Reps/Duration 10 ea Comments holding on to kitchen counter PT-OP-T Assessment and Plan Start: 11/03/21 16:13 Freq: Status: Active Protocol: Document 12/29/21 08:15 AMB (Rec: 12/29/21 16:30 AMB [id number]) Physical Therapy Assessment Goals Four Impairment Gait Short Term Goal (STG) Mirza will improve his timed up and go score to less than 12 seconds to show a decreased risk of falling. STG Duration 4 weeks Skilled Nursing Goal (LTG) Mirza will ambulate for 6 minutes over smooth terrain for at least 1,600ft to meet norms for men in their 60s. LTG Duration 12 weeks Three Impairment Pain Short Term Goal (STG) Mirza will perform a full squat with good body mechanics without an increase in his back pain. STG Duration 4 weeks Skilled Nursing Goal (LTG) Mirza will work 8 hours with 4 /10 back pain or less. LTG Duration 12 weeks Two Impairment HEP Short Term Goal (STG) Mirza will be independant and consistent with an exercise program to improve his mobility. STG Duration 4 weeks One Impairment Transfers Short Term Goal (STG) Mirza will perform all bed mobility with 2/10 back pain or less. STG Duration 4 weeks Skilled Nursing Goal (LTG) Mirza will improve his 5x sit to stand time to 14 seconds. Assessment Summary Assessment Mirza continues to have difficulty initiating movement . Back pain continues, worst in the morning. Encouraged continued exercise but space seems to be very limited in his home per his report. Consider supine exercises? Physical Therapy Plan Next Visit Focus/Plan Next Note Type Treatment Note Next Visit Plan Review beginning HEP: forward bend and forward rocking, pt requests manual therapy
--- NOTE | 2021-12-30 09:19 | PT.OTN ---
Current Diagnoses Parkinson's disease (12/30/21) Dorsalgia, unspecified (12/30/21) Physical Therapy Treatment Note PT-OP-A Visit Information Start: 11/03/21 16:13 Freq: Status: Active Protocol: Document 12/30/21 08:34 AMB (Rec: 12/30/21 09:19 AMB [id number]) Out-Patient Physical Therapy Visit Information Visit Information Visit Type Treatment Note Visit Start Time 08:15 Visit Stop Time 09:00 Total Visit Minutes 45 Visit Number 8 PT-OP-B Current Condition Start: 11/03/21 16:13 Freq: Status: Active Protocol: Document 11/10/21 09:04 AMB (Rec: 11/10/21 09:20 AMB [id number]) Current Condition History of Current Condition Onset Date 2 years Current Complaints back pain/Parkinsons History of Current Condition Mirza has had Parkinsons for at least the last 3 years, works at [employer] the [employer] at [employer] which increases back pain. Works 24 hrs/week (reducing hours due to pain and difficulty moving with PD) . Lives with his who is having her own medical issues. 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 Previous PT helped a little mostly stretches. Back pain can go down the legs at times, but not always. In general feels better when moving, worst pain is when stationary (sitting). Treatment Goals Patient/Caregiver Goals Reduce back pain Prior Functional Status Baseline Function- ADL's Modified Independent Baseline Function- Mobility Modified Independent Current Functional Impairments (Reported) Functional Limitations- Mobility/Gait Limited in gait distance Functional Limitations- Work/School Difficulty reaching, climbs ladders at works Functional Limitations- Recreation/ Pain with sitting Hobbies Personal Factors Other Personal Factors That May Effect Parkinsons Therapy/Recovery PT-OP-C Subjective Start: 11/03/21 16:13 Freq: Status: Active Protocol: Document 12/30/21 08:34 AMB (Rec: 12/30/21 09:19 AMB [id number]) OP-PT Subjective Patient Comments Patient Comments Reports neurologist is changing his meds, needs to go to pharmacy and figure out what is going on with that. PT-OP-E Functional Tests Start: 11/03/21 16:13 Freq: Status: Active Protocol: Document 11/10/21 10:22 AMB (Rec: 11/10/21 10:27 AMB [id number]) Functional Tests Five Times Sit to Stand Test Score 18 Comments no UE support Timed Up and Go (TUG) Score 17 Comments no AD TUG Impairment Rating 60 to <80% Impaired (Score 16- 17) PT-OP-G Mobility & Gait Start: 11/03/21 16:13 Freq: Status: Active Protocol: Document 11/10/21 10:22 AMB (Rec: 11/10/21 10:27 AMB [id number]) OP Mobility Evaluation Bed Mobility Rolling reports difficulty getting out of bed, dagmar managing sheets OP Gait Assessment Comments Gait Comments Enbloc gait without armswing, toe catching, no AD PT-OP-J Posture/Palpation/Skin Start: 11/03/21 16:13 Freq: Status: Active Protocol: Document 11/10/21 10:22 AMB (Rec: 11/10/21 10:27 AMB [id number]) Posture Evaluation Comments Posture Comments Moderate/severe thoracic kyphosis with L shoulder high in standing and forward/ laterally tilted head, right ribs more prominent with forward flexion Palpation Assessment Location One Palpation Location L>R QL Palpation Findings Soft Tissue Tightness,Muscle Guarding,Tenderness PT-OP-K Range of Motion Start: 11/03/21 16:13 Freq: Status: Active Protocol: Document 11/10/21 10:22 AMB (Rec: 11/10/21 10:27 AMB [id number]) Lumbar Spine Range of Motion Lumbar Spine Active Percentage Testing Position Standing Flexion 50 Extension 25 Lateral Flexion Left 50 Lateral Flexion Right 50 PT-OP-Q Treatments Start: 11/03/21 16:13 Freq: Status: Active Protocol: Document 12/30/21 08:34 AMB (Rec: 12/30/21 09:19 AMB [id number]) Manual Therapy Treatment Soft Tissue Mobilization 1 Body Location paraspinals/ QL Mobilization Type Cross-Friction,Myofascial Release Body Position Sidelying Comments Right, educated in pillow support for decreasing back pain in bed. Neuro Re-Education Treatment Coordination Activities seated forward step Reps/Duration 10 Comments with UE abduction, forward step- heavy verbal cues for coordination fwd bend Reps/Duration 10 ea Comments with shoulders below 90 degree abduction for pain rock and reach Reps/Duration 10 ea Comments seated-- heavy verbal cues for coordination PT-OP-T Assessment and Plan Start: 04/13/22 16:13 Freq: Status: Active Protocol: Document 12/30/21 08:34 AMB (Rec: 12/30/21 09:19 AMB [id number]) Physical Therapy Assessment Goals Four Impairment Gait Short Term Goal (STG) Mirza will improve his timed up and go score to less than 12 seconds to show a decreased risk of falling. STG Duration 4 weeks Warehouse Lead Goal (LTG) Mirza will ambulate for 6 minutes over smooth terrain for at least 1,600ft to meet norms for men in their 60s. LTG Duration 12 weeks Three Impairment Pain Short Term Goal (STG) Mirza will perform a full squat with good body mechanics without an increase in his back pain. STG Duration 4 weeks Warehouse Lead Goal (LTG) Mirza will work 8 hours with 4 /10 back pain or less. LTG Duration 12 weeks Two Impairment HEP Short Term Goal (STG) Mirza will be independant and consistent with an exercise program to improve his mobility. STG Duration 4 weeks One Impairment Transfers Short Term Goal (STG) Mirza will perform all bed mobility with 2/10 back pain or less. STG Duration 4 weeks Warehouse Lead Goal (LTG) Mirza will improve his 5x sit to stand time to 14 seconds. Assessment Summary Assessment Mirza continues to not have space for standing HEP and bed is too soft for supine HEP, so did start with seated exercises. 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 Continued to work on amplitude of movement. Physical Therapy Plan Next Visit Focus/Plan Next Note Type Treatment Note Next Visit Plan Follow up on seated exercises, does pt have a space in his home for that
--- NOTE | 2022-01-04 09:20 | PT-OP ANOTE ---
no show- called and LVM with next appt time/day
--- NOTE | 2022-01-06 11:18 | PT.OTN ---
Current Diagnoses Parkinson's disease (01/06/22) Dorsalgia, unspecified (01/06/22) Physical Therapy Treatment Note PT-OP-A Visit Information Start: 11/03/21 16:13 Freq: Status: Active Protocol: Document 01/06/22 09:03 AMB (Rec: 01/06/22 09:44 AMB [id number]) Out-Patient Physical Therapy Visit Information Visit Information Visit Type Treatment Note Visit Start Time 09:00 Visit Stop Time 09:45 Total Visit Minutes 45 Visit Number 9 PT-OP-B Current Condition Start: 11/03/21 16:13 Freq: Status: Active Protocol: Document 11/10/21 09:04 AMB (Rec: 11/10/21 09:20 AMB [id number]) Current Condition History of Current Condition Onset Date 2 years Current Complaints back pain/Parkinsons History of Current Condition Mirza has had Parkinsons for at least the last 3 years, works at [employer] which increases back pain. Works 24 hrs/week (reducing hours due to pain and difficulty moving with PD) . Lives with his who is having her own medical issues. 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 Previous PT helped a little mostly stretches. Back pain can go down the legs at times, but not always. In general feels better when moving, worst pain is when stationary (sitting). Treatment Goals Patient/Caregiver Goals Reduce back pain Prior Functional Status Baseline Function- ADL's Modified Independent Baseline Function- Mobility Modified Independent Current Functional Impairments (Reported) Functional Limitations- Mobility/Gait Limited in gait distance Functional Limitations- Work/School Difficulty reaching, climbs ladders at works Functional Limitations- Recreation/ Pain with sitting Hobbies Personal Factors Other Personal Factors That May Effect Parkinsons Therapy/Recovery PT-OP-C Subjective Start: 11/03/21 16:13 Freq: Status: Active Protocol: Document 01/06/22 11:13 AMB (Rec: 01/06/22 11:16 AMB [id number]) OP-PT Subjective Patient Comments Patient Comments Pt reports continued pain/ difficulty gettin gout of bed, hasn't scheduled MRI yet PT-OP-E Functional Tests Start: 11/03/21 16:13 Freq: Status: Active Protocol: Document 11/10/21 10:22 AMB (Rec: 11/10/21 10:27 AMB [id number]) Functional Tests Five Times Sit to Stand Test Score 18 Comments no UE support Timed Up and Go (TUG) Score 17 Comments no AD TUG Impairment Rating 60 to <80% Impaired (Score 16- 17) PT-OP-G Mobility & Gait Start: 11/03/21 16:13 Freq: Status: Active Protocol: Document 11/10/21 10:22 AMB (Rec: 11/10/21 10:27 AMB [id number]) OP Mobility Evaluation Bed Mobility Rolling reports difficulty getting out of bed, dagmar managing sheets OP Gait Assessment Comments Gait Comments Enbloc gait without armswing, toe catching, no AD PT-OP-J Posture/Palpation/Skin Start: 11/03/21 16:13 Freq: Status: Active Protocol: Document 11/10/21 10:22 AMB (Rec: 11/10/21 10:27 AMB [id number]) Posture Evaluation Comments Posture Comments Moderate/severe thoracic kyphosis with L shoulder high in standing and forward/ laterally tilted head, right ribs more prominent with forward flexion Palpation Assessment Location One Palpation Location L>R QL Palpation Findings Soft Tissue Tightness,Muscle Guarding,Tenderness PT-OP-K Range of Motion Start: 11/03/21 16:13 Freq: Status: Active Protocol: Document 11/10/21 10:22 AMB (Rec: 11/10/21 10:27 AMB [id number]) Lumbar Spine Range of Motion Lumbar Spine Active Percentage Testing Position Standing Flexion 50 Extension 25 Lateral Flexion Left 50 Lateral Flexion Right 50 PT-OP-Q Treatments Start: 11/03/21 16:13 Freq: Status: Active Protocol: Document 01/06/22 11:13 AMB (Rec: 01/06/22 11:16 AMB [id number]) Therapeutic Exercises Supine Exercises 2 Supine Exercise Name supine rolling Reps/Minutes 10 min Comments coordination leg/arm movement 1 Supine Exercise Name lumbar trunk rotation Reps/Minutes 2x12 Sitting Exercises 1 Sitting Exercise Name supine to sit, pushing with arms Standing Exercises pec stretch Side bilateral Reps/Minutes 30x2 Manual Therapy Treatment Soft Tissue Mobilization 1 Body Location paraspinals/ QL Mobilization Type Cross-Friction,Myofascial Release Body Position Sidelying Comments Right, educated in pillow support for decreasing back pain in bed. PT-OP-T Assessment and Plan Start: 11/03/21 16:13 Freq: Status: Active Protocol: Document 01/06/22 11:17 ANIBAL (Rec: 01/06/22 11:18 [facility] [id number]) Physical Therapy Assessment Assessment Summary Assessment Mirza continues to have low back pain/difficulty performing work tasks. More restless leg symptoms today. Pt thinks he is out of his meds for his restless legs and did display more whole body tremor/dyskinesia today. Continues to have a difficult time finding space to do exercises at home. So tried supine exercises to work on bed mobility, so pt has space to do exercises. Physical Therapy Plan Next Visit Focus/Plan Next Note Type Treatment Note Next Visit Plan Follow up on supineexercises, does pt have a space in his home for that
--- NOTE | 2022-01-18 08:55 | PT.OTN ---
Current Diagnoses Parkinson's disease (01/18/22) Dorsalgia, unspecified (01/18/22) Physical Therapy Treatment Note PT-OP-A Visit Information Start: 11/03/21 16:13 Freq: Status: Active Protocol: Document 01/18/22 08:28 AMB (Rec: 01/18/22 09:04 AMB [id number]) Out-Patient Physical Therapy Visit Information Visit Information Visit Type Treatment Note Visit Start Time 08:15 Visit Stop Time 09:00 Total Visit Minutes 45 Visit Number 10 PT-OP-B Current Condition Start: 11/03/21 16:13 Freq: Status: Active Protocol: Document 11/10/21 09:04 AMB (Rec: 11/10/21 09:20 AMB [id number]) Current Condition History of Current Condition Onset Date 2 years Current Complaints back pain/Parkinsons History of Current Condition Mirza has had Parkinsons for at least the last 3 years, works at [employer] which increases back pain. Works 24 hrs/week (reducing hours due to pain and difficulty moving with PD) . Lives with his who is having her own medical issues. 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 Previous PT helped a little mostly stretches. Back pain can go down the legs at times, but not always. In general feels better when moving, worst pain is when stationary (sitting). Treatment Goals Patient/Caregiver Goals Reduce back pain Prior Functional Status Baseline Function- ADL's Modified Independent Baseline Function- Mobility Modified Independent Current Functional Impairments (Reported) Functional Limitations- Mobility/Gait Limited in gait distance Functional Limitations- Work/School Difficulty reaching, climbs ladders at works Functional Limitations- Recreation/ Pain with sitting Hobbies Personal Factors Other Personal Factors That May Effect Parkinsons Therapy/Recovery PT-OP-C Subjective Start: 11/03/21 16:13 Freq: Status: Active Protocol: Document 01/18/22 08:28 AMB (Rec: 01/18/22 09:04 AMB [id number]) OP-PT Subjective Patient Comments Patient Comments Pt reports episodes of what could be freezing at work that can last for a few minutes. PT-OP-E Functional Tests Start: 11/03/21 16:13 Freq: Status: Active Protocol: Document 11/10/21 10:22 AMB (Rec: 11/10/21 10:27 AMB [id number]) Functional Tests Five Times Sit to Stand Test Score 18 Comments no UE support Timed Up and Go (TUG) Score 17 Comments no AD TUG Impairment Rating 60 to <80% Impaired (Score 16- 17) PT-OP-G Mobility & Gait Start: 11/03/21 16:13 Freq: Status: Active Protocol: Document 11/10/21 10:22 AMB (Rec: 11/10/21 10:27 AMB [id number]) OP Mobility Evaluation Bed Mobility Rolling reports difficulty getting out of bed, dagmar managing sheets OP Gait Assessment Comments Gait Comments Enbloc gait without armswing, toe catching, no AD PT-OP-J Posture/Palpation/Skin Start: 11/03/21 16:13 Freq: Status: Active Protocol: Document 11/10/21 10:22 AMB (Rec: 11/10/21 10:27 AMB [id number]) Posture Evaluation Comments Posture Comments Moderate/severe thoracic kyphosis with L shoulder high in standing and forward/ laterally tilted head, right ribs more prominent with forward flexion Palpation Assessment Location One Palpation Location L>R QL Palpation Findings Soft Tissue Tightness,Muscle Guarding,Tenderness PT-OP-K Range of Motion Start: 11/03/21 16:13 Freq: Status: Active Protocol: Document 11/10/21 10:22 AMB (Rec: 11/10/21 10:27 AMB [id number]) Lumbar Spine Range of Motion Lumbar Spine Active Percentage Testing Position Standing Flexion 50 Extension 25 Lateral Flexion Left 50 Lateral Flexion Right 50 PT-OP-Q Treatments Start: 11/03/21 16:13 Freq: Status: Active Protocol: Document 01/18/22 08:15 AMB (Rec: 01/19/22 07:28 AMB [id number]) Therapeutic Exercises Supine Exercises 1 Supine Exercise Name lumbar trunk rotation Reps/Minutes 2x12 Standing Exercises weight shifting Standing Exercise Name like when bagging groceries Comments challenging lat stretch Standing Exercise Name at ballet bar t band rows Side bilateral Reps/Minutes 2x10 Comments with focus on posture Gait Training Gait Activity 2 Description TUG Comments no LOB 1 Description smooth surface, no AD Treatment Focus 200' Comments cued arm swing, speed, step length, a couple of toe catches where patient had a near LOB PT-OP-T Assessment and Plan Start: 11/03/21 16:13 Freq: Status: Active Protocol: Document 01/18/22 08:28 AMB (Rec: 01/18/22 09:04 [facility] [id number]) Physical Therapy Assessment Goals Four Impairment Gait Short Term Goal (STG) Mirza will improve his timed up and go score to less than 12 seconds to show a decreased risk of falling. STG Duration 16 seconds [facility] Goal (LTG) Mirza will ambulate for 6 minutes over smooth terrain for at least 1,600ft to meet norms for men in their 60s. LTG Duration 12 weeks Three Impairment Pain Short Term Goal (STG) Mirza will perform a full squat with good body mechanics without an increase in his back pain. STG Duration 4 weeks [facility] Goal (LTG) Mirza will work 8 hours with 4 /10 back pain or less. LTG Duration 12 weeks Two Impairment HEP Short Term Goal (STG) Mirza will be independant and consistent with an exercise program to improve his mobility. STG Duration 4 weeks One Impairment Transfers Short Term Goal (STG) Mirza will perform all bed mobility with 2/10 back pain or less. STG Duration 4 weeks [facility] Goal (LTG) Mirza will improve his 5x sit to stand time to 14 seconds. LTG Duration 30 seconds Assessment Summary Assessment Mirza continues to have difficulty finding a space to do exercises, had difficulty even with standing weight shifts today, difficulty motor planning. 5xsit to stand and TUG did not show significant improvement since eval. Physical Therapy Plan Next Visit Focus/Plan Next Visit Plan Possible d/c due to insurance
--- NOTE | 2022-01-20 12:52 | PT.OTN ---
Current Diagnoses Parkinson's disease (01/20/22) Dorsalgia, unspecified (01/20/22) Physical Therapy Treatment Note PT-OP-A Visit Information Start: 11/03/21 16:13 Freq: Status: Active Protocol: Document 01/20/22 08:20 AMB (Rec: 01/20/22 09:06 AMB [id number]) Out-Patient Physical Therapy Visit Information Visit Information Visit Type Treatment Note Visit Start Time 08:15 Visit Stop Time 09:00 Total Visit Minutes 45 Visit Number 10 PT-OP-B Current Condition Start: 11/03/21 16:13 Freq: Status: Active Protocol: Document 11/10/21 09:04 AMB (Rec: 11/10/21 09:20 AMB [id number]) Current Condition History of Current Condition Onset Date 2 years Current Complaints back pain/Parkinsons History of Current Condition Mirza has had Parkinsons for at least the last 3 years, works at [employer] at [employer] which increases back pain. Works 24 hrs/week (reducing hours due to pain and difficulty moving with PD) . Lives with his who is having her own medical issues. 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 Previous PT helped a little mostly stretches. Back pain can go down the legs at times, but not always. In general feels better when moving, worst pain is when stationary (sitting). Treatment Goals Patient/Caregiver Goals Reduce back pain Prior Functional Status Baseline Function- ADL's Modified Independent Baseline Function- Mobility Modified Independent Current Functional Impairments (Reported) Functional Limitations- Mobility/Gait Limited in gait distance Functional Limitations- Work/School Difficulty reaching, climbs ladders at works Functional Limitations- Recreation/ Pain with sitting Hobbies Personal Factors Other Personal Factors That May Effect Parkinsons Therapy/Recovery PT-OP-C Subjective Start: 11/03/21 16:13 Freq: Status: Active Protocol: Document 01/20/22 08:20 AMB (Rec: 01/20/22 09:06 AMB [id number]) OP-PT Subjective Patient Comments Patient Comments Pt's neurologist is changing meds and seeing him again in 2 weeks. PT-OP-E Functional Tests Start: 11/03/21 16:13 Freq: Status: Active Protocol: Document 11/10/21 10:22 AMB (Rec: 11/10/21 10:27 AMB [id number]) Functional Tests Five Times Sit to Stand Test Score 18 Comments no UE support Timed Up and Go (TUG) Score 17 Comments no AD TUG Impairment Rating 60 to <80% Impaired (Score 16- 17) PT-OP-G Mobility & Gait Start: 11/03/21 16:13 Freq: Status: Active Protocol: Document 11/10/21 10:22 AMB (Rec: 11/10/21 10:27 AMB [id number]) OP Mobility Evaluation Bed Mobility Rolling reports difficulty getting out of bed, dagmar managing sheets OP Gait Assessment Comments Gait Comments Enbloc gait without armswing, toe catching, no AD PT-OP-J Posture/Palpation/Skin Start: 11/03/21 16:13 Freq: Status: Active Protocol: Document 11/10/21 10:22 AMB (Rec: 11/10/21 10:27 AMB [id number]) Posture Evaluation Comments Posture Comments Moderate/severe thoracic kyphosis with L shoulder high in standing and forward/ laterally tilted head, right ribs more prominent with forward flexion Palpation Assessment Location One Palpation Location L>R QL Palpation Findings Soft Tissue Tightness,Muscle Guarding,Tenderness PT-OP-K Range of Motion Start: 11/03/21 16:13 Freq: Status: Active Protocol: Document 11/10/21 10:22 AMB (Rec: 11/10/21 10:27 AMB [id number]) Lumbar Spine Range of Motion Lumbar Spine Active Percentage Testing Position Standing Flexion 50 Extension 25 Lateral Flexion Left 50 Lateral Flexion Right 50 PT-OP-Q Treatments Start: 11/03/21 16:13 Freq: Status: Active Protocol: Document 01/20/22 08:20 AMB (Rec: 01/20/22 09:06 AMB [id number]) Therapeutic Activity Therapeutic Activity 1 Name lifting/squatting body mechanics Comments 3#- tactile cues for squat mechanics, verbal cues of chest up Gait Training Gait Activity 1 Description smooth surface, no AD Treatment Focus 200' Comments cued chest up Manual Therapy Treatment Soft Tissue Mobilization 1 Body Location paraspinals/ QL Mobilization Type Cross-Friction,Myofascial Release Body Position Sidelying Comments Right, educated in pillow support for decreasing back pain in bed. PT-OP-T Assessment and Plan Start: 11/03/21 16:13 Freq: Status: Active Protocol: Document 01/20/22 08:20 AMB (Rec: 01/20/22 09:06 AMB [id number]) Physical Therapy Assessment Goals Four Impairment Gait Short Term Goal (STG) Mirza will improve his timed up and go score to less than 12 seconds to show a decreased risk of falling. STG Duration NOT MET [facility] Goal (LTG) Mirza will ambulate for 6 minutes over smooth terrain for at least 1,600ft to meet norms for men in their 60s. LTG Duration NOT MET Three Impairment Pain Short Term Goal (STG) Mirza will perform a full squat with good body mechanics without an increase in his back pain. STG Duration 4 weeks [facility] Goal (LTG) Mirza will work 8 hours with 4 /10 back pain or less. LTG Duration NOT MET 6-8/10 Two Impairment HEP Short Term Goal (STG) Mirza will be independant and consistent with an exercise program to improve his mobility. STG Duration NOT MET One Impairment Transfers Short Term Goal (STG) Mirza will perform all bed mobility with 2/10 back pain or less. STG Duration NOT MET Half-Way Goal (LTG) Mirza will improve his 5x sit to stand time to 14 seconds. LTG Duration NOT MET Assessment Summary Assessment Mirza continues to have progressive mobility deficits that make treating his back pain more challenging. We have worked on body mechanics, posture, and gait training but pt continues to have a difficult time changing motor patterns. He hasn't really had success with his HEP as he states he does not have space in his home, despite giving him standing, supine, and seated options. He has not met any of his goals, the progressive nature of his disease and his difficulty with his exercises are the likely causes of that, so we will d/c PT at this time, but Mirza is welcome to return at a time when he is better able to be consistent with his exercises, or when family can help him more with this. Physical Therapy Plan Discharge Physical Therapy Discharge Reasons Plateau in Progress
== END 2022-01-31 11:04 ==
LOC: PHYS 08:15
PROVIDERS: Family Provider Family Medicine; PCP Family Medicine; Referring Provider Family Medicine; Visit Provider Family Medicine
DX: M54.9 Dorsalgia, unspecified (principal); G20 Parkinson's disease
CPT/HCPCS: 97110; 97112; 97116; 97140; 97162; 97530

== ENCOUNTER 2022-05-31 10:30 | Outpatient (RCR) | payer OTHER, SELFPAY ==
--- NOTE | 2021-12-27 13:23 | ST.OPIE ---
Visit Care Team Role Provider Type Miguel A Peng MD Attending Provider Physician Family Provider Primary Care Provider Referring Provider Specialty: Family Practice Address: [address] [place] [address], [facility] [place], [facility] Email: [email or web address] Speech-Language Pathology Initial Evaluation LABOURERS Voice Resonance Evaluation Start: 12/27/21 08:38 Freq: Status: Active Protocol: Document 12/27/21 12:15 ANGEL (Rec: 12/27/21 13:23 ANGEL [id number]) Voice and Resonance Assessment Session Time Visit Start Time 08:30 Visit Stop Time 09:15 Total Visit Minutes 45 Visit Information Visit Number Initial Evaluation, 08/04 authorized Plan of Care Dates 12/27/21 - 07/23/22 Insurance Information [facility]ly [facility] Next Note Type Next Note Type Treatment Note Referral Referring Physician Dr. Miguel A Peng Reason for Referral Parkinson's disease Setting Setting Outpatient Care Patient History Patient History The pt is a 61-yr-old male who was diagnosed with Parkinson' s disease 3 yrs ago. He noted difficulty with speech articulation and frequently losing track of his thoughts in conversation, leading to abandonment of topics. He also c/o sores in his mouth d/t suspected unintentional bites, and thick and excessive saliva with the sensation that my throat closes up when he swallows it. He reported new onset last week of difficulty swallowing pills and expressed concern that his teeth are breaking. He has a dentist appt scheduled for this month. The pt is being seen by PT for back pain, and ST services were recommended d/t observations of reduced speech intelligibility and drooling. Hearing Hearing Level Normal Vision Vision Status Not Impaired [place] Langauge Language(s) Spoken in the Home [place] Occupational Status Occupation Status Employed at [employer] Previous Therapy Previous Speech-Language Therapy Yes History of Previous Therapy The pt received speech therapy services as a child targeting articulation and language skills. In his 20s, he was also seen for saliva management. Oral Motor Assessment Source: [place] [employer] ([employer]). Oral-Motor Eval Completed Yes Oral-Motor Assessment Moderate-severe generalized muscular weakness. Pt was unable to fill cheeks with air . Lingual ROM was also noted. Soft palate elevated upon phonation. Two small sores were observed both at left side. One was small and red in color inside his lip, and the other was larger and white in color toward the back of his cheek. They appear to be bite angeles that are healing, but suspect they are recurring. Excessive saliva was also observed, which the pt managed by spitting into tissues throughout the evaluation. He also seemingly chewed on his tongue throughout the session. He expressed concern about the sound it made without apparent awareness of what he was doing. This LABOURERS discouraged the pt from doing this, although this appears to be habitual, and no lesions or other lingual damage was observed. The pt has full natural dentition in adequate condition. No broken teeth or decay were observed. Subjective Subjective The pt arrived on time and provided case history supplemental to medical records. He expressed concern about time, as he took time off work to attend and needed to return to work. Evaluation tasks were limited to allow for this and will be continued at next session. - Laryngeal Performance CAPE-V Overall Severity 61%, Moderate-Severe Roughness 6%, Mild Breathiness 8%, Mild Strain 0%, WNL Pitch 29%, Mild-Mod (reduced) Loudness 66%, Moderate-Severe Normal Resonance? Yes Additional Features Wet/Gurgly Other Features Observed Wet/gurgly voice during sustained phonation Maximum Phonation Time MPT Norms: Women (15-25) Men (25-35) Loudness (50-60 dB); Speaking Rate: Oral Reading of Sentences (190 Words Per Minute); Oral Reading of Paragraphs (160-170 WPM); Speaking Rate in Conversation (150-250 WPM) Maximum Phonation Time 8.8 sec Maximum Phonation Time Reduced Maximum Phonation Time Comments Range = 5.9-8.8 sec. Spontaneous loudness was 58 dB , increased to 67 dB with verbal prompts and demonstration. Jitter/Shimmer Norms: Jitter (Less than or equal to 1.040% - Frequency) Norms: Shimmer (Less than or equal to 3.810% - Amplitude) Jitter 0.52% Shimmer 4.80% Pitch [place] Pitch [place] Comments Reduced vocal inflection in speech, mildly monotone Breath Support Breath Support Sustained Phonation Significantly reduced Comment Breath Support Conversation Comment Normal duration of speech on a single breath at reduced loudness levels Speaks on Room Air Yes Postural Alignment Stance Slumped Comments Pt was unable to sit for the duration of the session d/t back pain Voice Pitch Range Norms: Women (100-300 Hz) Men (70-250 Hz) Fundamental Frequency Norms: Women (Mean: 225 Hz; Range: 155-334 Hz) Men ( Mean: 128 Hz; Range: 85-196 Hz) Voice Loudness Moderately Soft/Quiet Voice Phonatory-based Quality Weak Fundamental Frequency 144 Hz WNL Intensity 58-65 dB in conversation Paradoxical Vocal Fold Movement No Indications Resonance Nasal Resonance Normal Oral Resonance Normal Therapeutic Techniques Therapy Tactics Increase Loudness Other Tactics Improved vocal quality with increased loudness; however, stamina for loudness was severely diminished. Findings Findings Moderate-Severe Impairment Observations Imprecise, slurred speech articulation with occ stumbling in speech. Slowed expressive language processing and speech was observed. The pt also exhibited reduced breath support to clear his nasal passage, indicating the likelihood of reduced breath support for protective cough. Voice/Resonance Assessment Assessment The pt presents with moderate- severe dysarthria secondary to Parkinson's disease and overall muscular weakness. Dysarthria is characterized by imprecise articulation, slowed rate of speech, and moderate-severely dysphonia, primarily decreased vocal loudness and limited pitch range. Breath support is limited for speech, voice and swallow safety, as demonstrated by reduced force for nasal clearance and sustained phonation. Such breath support impairment increases his risk of aspiration, as well. Swallow safety was screened today with trials limited to water intake. The pt consumed single and consecutive sips of water with audible swallow, indicating reduced coordination, but without overt s/sx of aspiration. Swallow safety will be evaluated further during treatment. Prognosis Rehabilitation Potential Good - Recommendations Treatment Recommended Yes Treatment Frequency/Duration 1x/wk for 12 wks Therapy Recommendations Further assessment of voice, speech, language and swallow safety Short Term Goals 1. The pt will participate in further assessment of voice, communication skills and swallow function to guide POC. 2. The pt will sustain phonation for 10 sec with avg loudness of 70 dB or greater to improve breath support for voice, speech, and swallow safety. 3. The pt will perform oral motor exercises to improve speech intelligibility and saliva management. 4. The pt will perform laryngeal exercises to improve vocal quality and range and improve airway protection during swallow. Tile Mechanic Helper Goals 1. The pt will demonstrate speech intelligibility sufficient for communicating in his home, community and work environments, as measured by pt/family reports and clinician judgment. 2. The pt will sustain phonation for 15 sec at avg loudness of 70 dB or greater to improve breath support for voice, speech and swallow safety. 3. The pt will demonstrate saliva management WFL using management strategies as needed. 4. The pt will tolerate least restrictive diet to meet his nutrition and hydration needs. Patient/Caregiver Education Patient/Family Education Described results of evaluation,Patient Understanding,Patient Needs More Info
--- NOTE | 2021-12-27 13:27 | ST.OPPOC ---
Physical, Occupational & Speech Therapy At [facility] Visit Care Team Role Provider Type Miguel A Peng MD Attending Provider Physician Family Provider Primary Care Provider Referring Provider Address: [address] [place] [address], [facility] [place] [place], [address] Speech Pathology Plan of Care Plan of Care Dates 12/27/21 - 07/23/[address] Miguel A Peng Patient History The pt is a 61-yr-old male who was diagnosed with Parkinson's disease 3 yrs ago. He noted difficulty with speech articulation and frequently losing track of his thoughts in conversation, leading to abandonment of topics. He also c/o sores in his mouth d/t suspected unintentional bites, and thick and excessive saliva with the sensation that my throat closes up when he swallows it. He also noted new onset last week of difficulty swallowing pills and expressed concern that his teeth are breaking. He has a dentist appt scheduled for this month. The pt is being seen by PT for back pain, and ST services were recommended d/t observations of reduced speech intelligibility and drooling. Cesspool Cleaner Goals 1. The pt will demonstrate speech intelligibility sufficient for communicating in his home, community and work environments, as measured by pt/family reports and clinician judgment. 2. The pt will sustain phonation for 15 sec at avg loudness of 70 dB or greater to improve breath support for voice, speech and swallow safety. 3. The pt will demonstrate saliva management WFL using management strategies as needed. 4. The pt will tolerate least restrictive diet to meet his nutrition and hydration needs. Comment: Electronically Signed by: RAFFAELE Flores 12/27/21 8122 If you are in agreement with this Plan of Care, please return a signed and dated copy. I have reviewed this Plan of Care and certify that the skilled therapy services above are required to meet the patient?s needs. Physician Signature Date Printed Name and Credentials Clinical Instructor Signature Printed Name and Credentials
--- NOTE | 2022-01-03 12:13 | ST.OPTN ---
Visit Care Team Role Provider Type Miguel A Peng MD Attending Provider Physician Family Provider Primary Care Provider Referring Provider Address: [address] [place] [address], [address], [place], [address] SENIOR INTERNET SALES CONSULTANT Treatment Note SENIOR INTERNET SALES CONSULTANT Treatment Note Start: 12/27/21 08:38 Freq: Status: Active Protocol: Document 01/03/22 10:40 ANGEL (Rec: 01/03/22 10:41 ANGEL [id number]) Speech Pathology Treatment Note Session Time Visit Start Time 09:30 Visit Stop Time 10:15 Total Visit Minutes 45 Visit Information Visit Number 09/04 Plan of Care Dates 12/27/21 - 07/23/22 Insurance Information [facility] Setting Treatment Setting Outpatient Care Visit Type Note Type Treatment Note Next Note Type Next Note Type Treatment Note General Information Patient History The pt is a 61-yr-old male who was diagnosed with Parkinson' s disease 3 yrs ago. He noted difficulty with speech articulation and frequently losing track of his thoughts in conversation, leading to abandonment of topics. He also c/o sores in his mouth d/t suspected unintentional bites, and thick and excessive saliva with the sensation that my throat closes up when he swallows it. He also noted new onset last week of difficulty swallowing pills and expressed concern that his teeth are breaking. He has a dentist appt scheduled for this month. The pt is being seen by PT for back pain, and ST services were recommended d/t observations of reduced speech intelligibility and drooling. Subjective Identification Type Name Others Present Student Observations/Patient Presentation The pt arrived on time. He reported being and appeared to be very tired throughout the session, primarily d/t having changed shifts at his employment from night to day shift. He reported not getting adequate sleep at night and frequently had his eyes closed throughout the session. He was sleeping in a waiting room chair upon SENIOR INTERNET SALES CONSULTANT's arrival to start the session. Chief Complaint(s) Speech,Language,Swallowing, Cognitive,Voice Rehab Expectation/Goals: Patient Goals Improve speech/loudness; recall/track exprsv language; swallow easily Patient Knowledge/Awareness of SENIOR INTERNET SALES CONSULTANT Role Good in Treatment Objective Short Term Goals 1. The pt will participate in further assessment of voice, communication skills and swallow function to guide POC. 2. The pt will sustain phonation for 10 sec with avg loudness of 70 dB or greater to improve breath support for voice, speech, and swallow safety. 3. The pt will perform oral motor exercises to improve speech intelligibility and saliva management. 4. The pt will perform laryngeal exercises to improve vocal quality and range and improve airway protection during swallow. Legal Technician Goals 1. The pt will demonstrate speech intelligibility sufficient for communicating in his home, community and work environments, as measured by pt/family reports and clinician judgment. 2. The pt will sustain phonation for 15 sec at avg loudness of 70 dB or greater to improve breath support for voice, speech and swallow safety. 3. The pt will demonstrate saliva management WFL using management strategies as needed. 4. The pt will tolerate least restrictive diet to meet his nutrition and hydration needs. Treatment Activities Clinical bedside swallow evaluation was administered. The pt consumed thin liquid and pureed, mech soft and regular textures without overt s/sx of aspiration and with occasional reports of mild discomfort in the throat with swallows of solids, described as feeling like slivers. Mildly-moderately impaired saliva management was noted, characterized by frequent wet lips with occasional mild pooling between lips and lower teeth. The pt was also observed to suddenly gulp during speech x3, which appeared to be reflexive swallows of saliva that is suspected to have entered the airway. Swallows of water were loudly audible, greater than swallows of solids, indicating increased effort of coordination of swallow with liquid vs solids. During intake of solids, the pt reported feeling that his teeth felt like they were breaking or chipped and he consistently lateralized his tongue against upper right and left back molars, frequently biting on his tongue while doing so without harm to his tongue. This SENIOR INTERNET SALES CONSULTANT visually examined his teeth and found no obvious impairment and encouraged the pt to resist biting on his tongue, which appears to be a habit that brings some sensory comfort. The pt is scheduled to see a dentist next week; will appreciate Dentist's input. The pt's vocal loudness was below normal levels in conversation, ~62 dB, and largely monotone pitch. Measured pitch range: 89-265 dB with weak, breathy and strained quality (57-67 dB). MPT = 13.5 sec with max prompts. Vocal loudness during structured tasks improved mildly with verbal prompts, demonstrating stimulability. Pt did carryover loudness to spontaneous speech x1. Assessment Patient Response to Treatment Fair Rehab Potential Good Impairments Identified Expressive language,Cognitive communication,Speech,Swallow, Voice Assessment of Overall Progress Unchanged Assessment of Improvement The pt presents with mild oropharyngeal dysphagia secondary to impaired and/or sensation of impaired dentition and reduced oropharyngeal muscular strength/coordination resulting in poor saliva management with occ laryngeal penetration during speech and effortful swallow. The pt reports frequent oral and pharyngeal discomfort during swallow. Suspect the pt may not be masticating solids sufficiently d/t dental discomfort, resulting in pharyngeal sticking sensation and need for effortful swallow . The pt continues with reduced breath support for voice and speech but was stimulable to prompts for increasing vocal loudness. Pitch is monotone, although the pt has access to a wide pitch range, though vocal production at the extreme pitches is severely weak. Suspect fatigue and generalized weakness contributes to the pt's symptoms. He also reports poor memory; therefore, HEP was initiated with a limited number of exercises and will be built up over time. Pt suggested his attend the next session for education purposes. This SENIOR INTERNET SALES CONSULTANT is very agreeable to this. Reviewed with Patient Goals,Progress Being Made,Home Exercise Program Patient/Caregiver Understanding Fair Plan Amount of Therapy Recommended 3 Months Frequency of Treatment Once a Week Length of Session 45 Minutes Therapeutic Contents Client Education,Cognitive- Linguistic Training,Expressive Language Training,Home Exercise Program, Intelligibility,Swallowing/ Feeding,Voice Training Provided Patient/Caregiver Instruction Home Exercise Program,Plan of Care,Questions/Concerns Therapy Recommendations Continue with Current Program
--- NOTE | 2022-01-11 17:31 | ST.OPTN ---
Visit Care Team Role Provider Type Miguel A Peng MD Attending Provider Physician Family Provider Primary Care Provider Referring Provider Address: [address] [place] [address], [address], [place], [address] DIRECT CHILL CASTER Treatment Note DIRECT CHILL CASTER Treatment Note Start: 12/27/21 08:38 Freq: Status: Active Protocol: Document 01/11/22 16:55 ANGEL (Rec: 01/11/22 16:57 ANGEL [id number]) Speech Pathology Treatment Note Session Time Visit Start Time 09:30 Visit Stop Time 10:30 Total Visit Minutes 60 Visit Information Visit Number 10/02 Plan of Care Dates 12/27/21 - 07/23/22 Insurance Information [facility] Setting Treatment Setting Outpatient Care Visit Type Note Type Treatment Note Next Note Type Next Note Type Treatment Note General Information Patient History The pt is a 61-yr-old male who was diagnosed with Parkinson' s disease 3 yrs ago. He noted difficulty with speech articulation and frequently losing track of his thoughts in conversation, leading to abandonment of topics. He also c/o sores in his mouth d/t suspected unintentional bites, and thick and excessive saliva with the sensation that my throat closes up when he swallows it. He also noted new onset last week of difficulty swallowing pills and expressed concern that his teeth are breaking. He has a dentist appt scheduled for this month. The pt is being seen by PT for back pain, and ST services were recommended d/t observations of reduced speech intelligibility and drooling. Subjective Identification Type Name Others Present Student Observations/Patient Presentation Pt arrived on time accompanied by his who was present throughout the session. The pt continues to have discomfort in his teeth and reported believing that, in past, some of his teeth had chipped and that he had swallowed those chips, which he also believed created cuts through his digestive system that resulted in blood in his stool. He is now sometimes afraid to swallow his saliva for fear of recurrence of such an event. Therefore, he often spits out his saliva and visually examines it for tooth chips. He is scheduled to see his dentist tomorrow. At his last dental visit, no chipped, broken or otherwise structural changes were observed by the dentist. Chief Complaint(s) Speech,Language,Swallowing, Cognitive,Voice Rehab Expectation/Goals: Patient Goals Improve speech/loudness; recall/track exprsv language; swallow easily Patient Knowledge/Awareness of DIRECT CHILL CASTER Role Good in Treatment Parent/Caretake Knowledge/Awareness of Good DIRECT CHILL CASTER Role in Treatment Patient/Caregiver Compliance with Home Fair Exercise Program Objective Short Term Goals 1. The pt will participate in further assessment of voice, communication skills and swallow function to guide POC. 2. The pt will sustain phonation for 10 sec with avg loudness of 70 dB or greater to improve breath support for voice, speech, and swallow safety. 3. The pt will perform oral motor exercises to improve speech intelligibility and saliva management. 4. The pt will perform laryngeal exercises to improve vocal quality and range and improve airway protection during swallow. Artillery Officer Goals 1. The pt will demonstrate speech intelligibility sufficient for communicating in his home, community and work environments, as measured by pt/family reports and clinician judgment. 2. The pt will sustain phonation for 15 sec at avg loudness of 70 dB or greater to improve breath support for voice, speech and swallow safety. 3. The pt will demonstrate saliva management WFL using management strategies as needed. 4. The pt will tolerate least restrictive diet to meet his nutrition and hydration needs. Treatment Activities Consulted with the pt regarding concerns described above. Recommended the pt discuss this with his dentist tomorrow and, if he ever finds chips of his teeth in his saliva, that he save them in a jar or bag to show to his dentist. Further recommended the pt ask questions about other possible causes of his dental discomfort if no structural damage is found, and if a small bite block may be a solution to aid the pt in resisting the urge to press his tongue into his molars and bite on his tongue. The pt continues to do these things, which appear to be habitual and offer some satisfaction to or distraction from the discomfort he feels. Recommended the pt press the tip of his tongue into his alveolar ridge whenever he feels the urge to bite it, in order to protect the tongue, discontinue an unsafe habit, and actually strengthen the tongue for swallowing at the same time. The pt was agreeable to this yet required 4 prompts in 10 minutes to change the habit. By the end of the session, the pt had placed his tongue at the alveolar ridge rather than bite it, demonstrating potential for changing this habit. Needs much more reinforcement. (Re)Education was provided to the pt/spouse RE potential impacts of PD on speech intelligibility, swallow safety, saliva management, and voice. Recommended increased frequency of swallow and/or spitting out saliva to reduce pooling and drooling. Discussed POC to include oral motor exercises to improve muscular strength for saliva management. Informed pt's spouse of voice exercises that have been targeted to date. She was supportive, offering to assist the pt as needed with HEP. The pt sustained phonation and performed pitch glide exercises at target loudness. This was not instrumentally measured. Skilled feedback was provided and pt/spouse verbalized understanding. Assessment Patient Response to Treatment Fair Rehab Potential Good Impairments Identified Expressive language,Cognitive communication,Speech,Swallow, Voice Assessment of Overall Progress Unchanged Assessment of Improvement The pt continues with mild- moderate saliva management impairment, complicated by dental discomfort, which has resulted in habitual pressing of tongue against molars and biting of his tongue, and fear of swallowing shards of teeth . Speech intelligibility is mildly reduced secondary to low loudness levels and imprecise articulation, the latter of which is also contributed by presence of excessive saliva. The pt demonstrated ability to perform structured tasks with targeted loudness, which improved vocal quality. He also was responsive to verbal prompts to substitute tongue biting with tongue tip press to alveolar ridge; however, he did require frequent prompts. Both the pt and his were receptive to all education and information provided today. Spouse was supportive. Reviewed with Patient Goals,Progress Being Made,Home Exercise Program Patient/Caregiver Understanding Fair Plan Amount of Therapy Recommended 3 Months Frequency of Treatment Once a Week Length of Session 45 Minutes Therapeutic Contents Client Education,Cognitive- Linguistic Training,Expressive Language Training,Home Exercise Program, Intelligibility,Swallowing/ Feeding,Voice Training Provided Patient/Caregiver Instruction Home Exercise Program,Plan of Care,Questions/Concerns Therapy Recommendations Continue with Current Program
--- NOTE | 2022-01-12 16:18 | ST.OPTN ---
Visit Care Team Role Provider Type Miguel A Peng MD Attending Provider Physician Family Provider Primary Care Provider Referring Provider Address: [address] [place] [address], [address], [place], [address] STAFF NURSE MIDWIFE Treatment Note STAFF NURSE MIDWIFE Treatment Note Start: 12/27/21 08:38 Freq: Status: Active Protocol: Document 01/11/22 16:55 ANGEL (Rec: 01/11/22 16:57 ANGEL [id number]) Speech Pathology Treatment Note Session Time Visit Start Time 09:30 Visit Stop Time 10:30 Total Visit Minutes 60 Visit Information Visit Number 10/02 Plan of Care Dates 12/27/21 - 07/23/22 Insurance Information [facility] Setting Treatment Setting Outpatient Care Visit Type Note Type Treatment Note Next Note Type Next Note Type Treatment Note General Information Patient History The pt is a 61-yr-old male who was diagnosed with Parkinson' s disease 3 yrs ago. He noted difficulty with speech articulation and frequently losing track of his thoughts in conversation, leading to abandonment of topics. He also c/o sores in his mouth d/t suspected unintentional bites, and thick and excessive saliva with the sensation that my throat closes up when he swallows it. He also noted new onset last week of difficulty swallowing pills and expressed concern that his teeth are breaking. He has a dentist appt scheduled for this month. The pt is being seen by PT for back pain, and ST services were recommended d/t observations of reduced speech intelligibility and drooling. Subjective Identification Type Name Others Present Student Observations/Patient Presentation Pt arrived on time accompanied by his who was present throughout the session. The pt continues to have discomfort in his teeth and reported believing that, in past, some of his teeth had chipped and that he had swallowed those chips, which he also believed created cuts through his digestive system that resulted in blood in his stool. He is now sometimes afraid to swallow his saliva for fear of recurrence of such an event. Therefore, he often spits out his saliva and visually examines it for tooth chips. He is scheduled to see his dentist tomorrow. At his last dental visit, no chipped, broken or otherwise structural changes were observed by the dentist. Chief Complaint(s) Speech,Language,Swallowing, Cognitive,Voice Rehab Expectation/Goals: Patient Goals Improve speech/loudness; recall/track exprsv language; swallow easily Patient Knowledge/Awareness of STAFF NURSE MIDWIFE Role Good in Treatment Parent/Caretake Knowledge/Awareness of Good STAFF NURSE MIDWIFE Role in Treatment Patient/Caregiver Compliance with Home Fair Exercise Program Objective Short Term Goals 1. The pt will participate in further assessment of voice, communication skills and swallow function to guide POC. 2. The pt will sustain phonation for 10 sec with avg loudness of 70 dB or greater to improve breath support for voice, speech, and swallow safety. 3. The pt will perform oral motor exercises to improve speech intelligibility and saliva management. 4. The pt will perform laryngeal exercises to improve vocal quality and range and improve airway protection during swallow. Transition Assistant Goals 1. The pt will demonstrate speech intelligibility sufficient for communicating in his home, community and work environments, as measured by pt/family reports and clinician judgment. 2. The pt will sustain phonation for 15 sec at avg loudness of 70 dB or greater to improve breath support for voice, speech and swallow safety. 3. The pt will demonstrate saliva management WFL using management strategies as needed. 4. The pt will tolerate least restrictive diet to meet his nutrition and hydration needs. Treatment Activities Consulted with the pt regarding concerns described above. Recommended the pt discuss this with his dentist tomorrow and, if he ever finds chips of his teeth in his saliva, that he save them in a jar or bag to show to his dentist. Further recommended the pt ask questions about other possible causes of his dental discomfort if no structural damage is found, and if a small bite block may be a solution to aid the pt in resisting the urge to press his tongue into his molars and bite on his tongue. The pt continues to do these things, which appear to be habitual and offer some satisfaction to or distraction from the discomfort he feels. Recommended the pt press the tip of his tongue into his alveolar ridge whenever he feels the urge to bite it, in order to protect the tongue, discontinue an unsafe habit, and actually strengthen the tongue for swallowing at the same time. The pt was agreeable to this yet required 4 prompts in 10 minutes to change the habit. By the end of the session, the pt had placed his tongue at the alveolar ridge rather than bite it, demonstrating potential for changing this habit. Needs much more reinforcement. (Re)Education was provided to the pt/spouse RE potential impacts of PD on speech intelligibility, swallow safety, saliva management, and voice. Recommended increased frequency of swallow and/or spitting out saliva to reduce pooling and drooling. Discussed POC to include oral motor exercises to improve muscular strength for saliva management. Informed pt's spouse of voice exercises that have been targeted to date. She was supportive, offering to assist the pt as needed with HEP. The pt sustained phonation and performed pitch glide exercises at target loudness. This was not instrumentally measured. Skilled feedback was provided and pt/spouse verbalized understanding. Assessment Patient Response to Treatment Fair Rehab Potential Good Impairments Identified Expressive language,Cognitive communication,Speech,Swallow, Voice Assessment of Overall Progress Unchanged Assessment of Improvement The pt continues with mild- moderate saliva management impairment, complicated by dental discomfort, which has resulted in habitual pressing of tongue against molars and biting of his tongue, and fear of swallowing shards of teeth . Speech intelligibility is mildly reduced secondary to low loudness levels and imprecise articulation, the latter of which is also contributed by presence of excessive saliva. The pt demonstrated ability to perform structured tasks with targeted loudness, which improved vocal quality. He also was responsive to verbal prompts to substitute tongue biting with tongue tip press to alveolar ridge; however, he did require frequent prompts. Both the pt and his were receptive to all education and information provided today. Spouse was supportive. Reviewed with Patient Goals,Progress Being Made,Home Exercise Program Patient/Caregiver Understanding Fair Plan Amount of Therapy Recommended 3 Months Frequency of Treatment Once a Week Length of Session 45 Minutes Therapeutic Contents Client Education,Cognitive- Linguistic Training,Expressive Language Training,Home Exercise Program, Intelligibility,Swallowing/ Feeding,Voice Training Provided Patient/Caregiver Instruction Home Exercise Program,Plan of Care,Questions/Concerns Therapy Recommendations Continue with Current Program
--- NOTE | 2022-02-01 15:14 | ST.OPTN ---
Visit Care Team Role Provider Type Miguel A Peng MD Attending Provider Physician Family Provider Primary Care Provider Referring Provider Address: [address] [place] [address], [facility], [place], [address] DIRT BIKE RACER Treatment Note DIRT BIKE RACER Clinical Instructor Line Start: 02/01/22 15:11 Freq: Status: Active Protocol: Document 02/01/22 15:11 ANGEL (Rec: 02/01/22 15:11 ANGEL [id number]) Clinical Instructor Signature Clinical Instructor Clinical Instructor Yes DIRT BIKE RACER Treatment Note Start: 12/27/21 08:38 Freq: Status: Active Protocol: Document 02/01/22 10:47 EK (Rec: 02/01/22 11:14 EK [id number]) Speech Pathology Treatment Note Session Time Visit Start Time 09:40 Visit Stop Time 10:25 Total Visit Minutes 45 Visit Information Visit Number 11/02 Plan of Care Dates 12/27/21 - 07/23/22 Insurance Information [facility] Treatment Setting Outpatient Care Visit Type Note Type Treatment Note Next Note Type Next Note Type Treatment Note General Information Patient History The pt is a 61-yr-old male who was diagnosed with Parkinson' s disease 3 yrs ago. He noted difficulty with speech articulation and frequently losing track of his thoughts in conversation, leading to abandonment of topics. He also c/o sores in his mouth d/t suspected unintentional bites, and thick and excessive saliva with the sensation that my throat closes up when he swallows it. He also noted new onset last week of difficulty swallowing pills and expressed concern that his teeth are breaking. He has a dentist appt scheduled for this month. The pt is being seen by PT for back pain, and ST services were recommended d/t observations of reduced speech intelligibility and drooling. Subjective Identification Type Name Observations/Patient Presentation Pt arrived on time accompanied by his who was present throughout the session. Pt reported that at his dentist appointment, the dentist made several referrals to address the pt's concerns (pt was not sure where/what type of referrals). Pt and pt's reported that the pt has been experiencing extreme fatigue throughout the last week, possibly due to medication changes. This was also observed in the session by the pt regularly closing his eyes during the session, listing to the right, and a slower than usual response time to questions. Pt indicated that he will ask his neurologist about this new level of fatigue at his appointment tomorrow. Chief Complaint(s) Speech,Language,Swallowing, Cognitive,Voice Rehab Expectation/Goals: Patient Goals Improve speech/loudness; recall/track exprsv language; swallow easily Patient Knowledge/Awareness of DIRT BIKE RACER Role Good in Treatment Parent/Caretake Knowledge/Awareness of Good DIRT BIKE RACER Role in Treatment Patient/Caregiver Compliance with Home Fair Exercise Program Objective Short Term Goals 1. The pt will participate in further assessment of voice, communication skills and swallow function to guide POC. 2. The pt will sustain phonation for 10 sec with avg loudness of 70 dB or greater to improve breath support for voice, speech, and swallow safety. 3. The pt will perform oral motor exercises to improve speech intelligibility and saliva management. 4. The pt will perform laryngeal exercises to improve vocal quality and range and improve airway protection during swallow. State Assessed Properties Director Goals 1. The pt will demonstrate speech intelligibility sufficient for communicating in his home, community and work environments, as measured by pt/family reports and clinician judgment. 2. The pt will sustain phonation for 15 sec at avg loudness of 70 dB or greater to improve breath support for voice, speech and swallow safety. 3. The pt will demonstrate saliva management WFL using management strategies as needed. 4. The pt will tolerate least restrictive diet to meet his nutrition and hydration needs. Treatment Activities Pt reported that over the last several weeks, workers at [employer] are not able to correctly hear the pt 's order. Collaborated with pt to create 7 functional phrases to practice and incorporate into HEP in order to target loudness. Pt required mod cueing to maintain a louder volume, which was faded to min-mod cueing by the end of the session. Provided skilled feedback to the pt to utilize clear speech strategies with his increased loudness in order to further improve speech clarity. The pt sustained phonation and performed pitch glide exercises. Skilled feedback was provided and pt/spouse verbalized understanding. Assessment Patient Response to Treatment Fair Rehab Potential Good Impairments Identified Expressive language,Cognitive communication,Speech,Swallow, Voice Assessment of Overall Progress Unchanged Assessment of Improvement Pt's performance during today' s exercises appeared to be heavily impacted by his level of fatigue. While pt's loudness was improved by the end of the session, it was still slightly below the target level. However, pt demonstrated good awareness by independently stating on several different occasions how he was being too quiet and should try again. Pt also demonstrated good motivation to change by working through his fatigue throughout the course of the session. Reviewed with Patient Goals,Progress Being Made,Home Exercise Program Patient/Caregiver Understanding Fair Plan Amount of Therapy Recommended 3 Months Frequency of Treatment Once a Week Length of Session 45 Minutes Therapeutic Contents Client Education,Cognitive- Linguistic Training,Expressive Language Training,Home Exercise Program, Intelligibility,Swallowing/ Feeding,Voice Training Provided Patient/Caregiver Instruction Home Exercise Program,Plan of Care,Questions/Concerns Therapy Recommendations Continue with Current Program
--- NOTE | 2022-02-08 12:00 | ST.OPTN ---
Visit Care Team Role Provider Type Miguel A Peng MD Attending Provider Physician Family Provider Primary Care Provider Referring Provider Address: [address] [place] [address], [facility], [place], [address] MANAGER OF BUSINESS Treatment Note MANAGER OF BUSINESS Clinical Instructor Line Start: 02/01/22 15:11 Freq: Status: Active Protocol: Document 02/01/22 15:11 ANGEL (Rec: 02/01/22 15:11 ANGEL [id number]) Clinical Instructor Signature Clinical Instructor Clinical Instructor Yes MANAGER OF BUSINESS Treatment Note Start: 12/27/21 08:38 Freq: Status: Active Protocol: Document 02/08/22 11:45 ANGEL (Rec: 02/08/22 12:00 ANGEL [id number]) Speech Pathology Treatment Note Session Time Visit Start Time 09:30 Visit Stop Time 10:20 Total Visit Minutes 50 Visit Information Visit Number 12/02 Plan of Care Dates 12/27/21 - 07/23/22 [facility] Setting Treatment Setting Outpatient Care Visit Type Note Type Treatment Note Next Note Type Next Note Type Treatment Note General Information Patient History The pt is a 61-yr-old male who was diagnosed with Parkinson' s disease 3 yrs ago. He noted difficulty with speech articulation and frequently losing track of his thoughts in conversation, leading to abandonment of topics. He also c/o sores in his mouth d/t suspected unintentional bites, and thick and excessive saliva with the sensation that my throat closes up when he swallows it. He also noted new onset last week of difficulty swallowing pills and expressed concern that his teeth are breaking. He has a dentist appt scheduled for this month. The pt is being seen by PT for back pain, and ST services were recommended d/t observations of reduced speech intelligibility and drooling. Subjective Identification Type Name Observations/Patient Presentation Pt arrived on time unaccompanied. He reported continued sleepiness from new medication, around which he is working with his Neurologist. He frequently closed his eyes throughout the session between and during conversation and during tasks without sleeping. He remained engaged with all treatment activities. He will see his Neurologist again next week, . The pt reported occasional inconsistency in taking his medication, particularly when he is working and not attentive to the time. He also reported increased carryover of vocal loudness in functional situations, successfully ordering food through the [employer] drive- thru. Chief Complaint(s) Speech,Language,Swallowing, Cognitive,Voice Rehab Expectation/Goals: Patient Goals Improve speech/loudness; recall/track exprsv language; swallow easily Patient Knowledge/Awareness of MANAGER OF BUSINESS Role Good in Treatment Parent/Caretake Knowledge/Awareness of Good MANAGER OF BUSINESS Role in Treatment Patient/Caregiver Compliance with Home Fair Exercise Program Objective Short Term Goals 1. The pt will participate in further assessment of voice, communication skills and swallow function to guide POC. 2. The pt will sustain phonation for 10 sec with avg loudness of 70 dB or greater to improve breath support for voice, speech, and swallow safety. 3. The pt will perform oral motor exercises to improve speech intelligibility and saliva management. 4. The pt will perform laryngeal exercises to improve vocal quality and range and improve airway protection during swallow. Make Up Worker Goals 1. The pt will demonstrate speech intelligibility sufficient for communicating in his home, community and work environments, as measured by pt/family reports and clinician judgment. 2. The pt will sustain phonation for 15 sec at avg loudness of 70 dB or greater to improve breath support for voice, speech and swallow safety. 3. The pt will demonstrate saliva management WFL using management strategies as needed. 4. The pt will tolerate least restrictive diet to meet his nutrition and hydration needs. Treatment Activities Recommended the pt set alarms on his smart phone, which he usually carries with him, to assist in adhering to medication regimen. The pt was agreeable to this, and training was provided in setting the alarms. After demonstration, the pt set each alarm to repeat everyday. Continued training in increasing vocal loudness and speech intelligibility. Pt sustained phonation with initial avg loudness of 65 dB, increasing to 69 dB in additional trials. MPT = 15.3 sec. Pitch range: 131-288 Hz with loudness ranging from 62- 68 dB. In conversation at start of session, the pt spoke with avg of 60 dB, increased to 62 dB by end of session. The pt read functional phrases , again improving in loudness over the duration of the task. To stimulate hearing loss, this MANAGER OF BUSINESS plugged her ears and was able still to hear and understand the pt's speech. The pt was also observed to swallow thin liquid with and without ~6 pills at a time. No overt s/sx of aspiration were observed during or after consecutive sips. Assessment Patient Response to Treatment Fair Rehab Potential Good Impairments Identified Expressive language,Cognitive communication,Speech,Swallow, Voice Assessment of Overall Progress Unchanged Assessment of Improvement Pt remains fatigued from new medication but able to participate in today's activities. Improved duration of phonation and vocal loudness was seen from start to end of session in all tasks . The pt demonstrated ability to communicate functional statements within normal loudness levels. Speech intelligibility improved by reducing rate of speech and pausing between phrases in longer sentences. Carryover to functional situations is improving, per pt report. Reviewed with Patient Goals,Progress Being Made,Home Exercise Program Patient/Caregiver Understanding Good Plan Amount of Therapy Recommended 3 Months Frequency of Treatment Once a Week Length of Session 45 Minutes Therapeutic Contents Client Education,Cognitive- Linguistic Training,Expressive Language Training,Home Exercise Program, Intelligibility,Swallowing/ Feeding,Voice Training Provided Patient/Caregiver Instruction Home Exercise Program,Plan of Care,Questions/Concerns Therapy Recommendations Continue with Current Program
--- NOTE | 2022-02-15 17:23 | ST.OPTN ---
Visit Care Team Role Provider Type Miguel A Peng MD Attending Provider Physician Family Provider Primary Care Provider Referring Provider Address: [address] [place] [address], [address], [place], [address] PELT SHEARER Treatment Note PELT SHEARER Clinical Instructor Line Start: 02/01/22 15:11 Freq: Status: Active Protocol: Document 02/01/22 15:11 ANGEL (Rec: 02/01/22 15:11 ANGEL [id number]) Clinical Instructor Signature Clinical Instructor Clinical Instructor Yes PELT SHEARER Treatment Note Start: 12/27/21 08:38 Freq: Status: Active Protocol: Document 02/15/22 17:37 ANGEL (Rec: 02/15/22 17:39 ANGEL [id number]) Speech Pathology Treatment Note Session Time Visit Start Time 09:30 Visit Stop Time 10:20 Total Visit Minutes 50 Visit Information Visit Number 01/02 Plan of Care Dates 12/27/21 - 07/23/22 Insurance Information [facility] Setting Treatment Setting Outpatient Care Visit Type Note Type Treatment Note Next Note Type Next Note Type Treatment Note General Information Patient History The pt is a 61-yr-old male who was diagnosed with Parkinson' s disease 3 yrs ago. He noted difficulty with speech articulation and frequently losing track of his thoughts in conversation, leading to abandonment of topics. He also c/o sores in his mouth d/t suspected unintentional bites, and thick and excessive saliva with the sensation that my throat closes up when he swallows it. He also noted new onset last week of difficulty swallowing pills and expressed concern that his teeth are breaking. He has a dentist appt scheduled for this month. The pt is being seen by PT for back pain, and ST services were recommended d/t observations of reduced speech intelligibility and drooling. Subjective Identification Type Name Observations/Patient Presentation Pt arrived on time. He reported feeling better with a little more energy than he had at the last two sessions since using alarms to take his medications consistently. He was given a Med Watch from a family member to assist in tracking medical information but was unsure if/how med alarms could alert via the watch. He also saw his dentist, Dr. Mckeon of [facility], last week who made no indication of neurological problems and no evidence of deterioration or breaking of teeth. He did refer the pt for a deeper cleaning of his teeth. Pt continues to c/o difficulty managing saliva and prefers to spit it out rather than swallow as he feels that swallowing it makes me tired. Chief Complaint(s) Speech,Language,Swallowing, Cognitive,Voice Rehab Expectation/Goals: Patient Goals Improve speech/loudness; recall/track exprsv language; swallow easily Patient Knowledge/Awareness of PELT SHEARER Role Good in Treatment Parent/Caretake Knowledge/Awareness of Good PELT SHEARER Role in Treatment Patient/Caregiver Compliance with Home Fair Exercise Program Objective Short Term Goals 1. The pt will participate in further assessment of voice, communication skills and swallow function to guide POC. 2. The pt will sustain phonation for 10 sec with avg loudness of 70 dB or greater to improve breath support for voice, speech, and swallow safety. 3. The pt will perform oral motor exercises to improve speech intelligibility and saliva management. 4. The pt will perform laryngeal exercises to improve vocal quality and range and improve airway protection during swallow. Mcfp Goals 1. The pt will demonstrate speech intelligibility sufficient for communicating in his home, community and work environments, as measured by pt/family reports and clinician judgment. 2. The pt will sustain phonation for 15 sec at avg loudness of 70 dB or greater to improve breath support for voice, speech and swallow safety. 3. The pt will demonstrate saliva management WFL using management strategies as needed. 4. The pt will tolerate least restrictive diet to meet his nutrition and hydration needs. Treatment Activities Assisted pt in trouble- shooting new Med Watch, which had no function for alarms. Determined the pt would need to carry his phone with him in order to be alerted to take medications. During the session, an alarm sounded, and the pt swallowed multiple meds (~5) of various sizes at once with consecutive sips of thin liquid without overt s/sx of aspiration, demonstrating swallow safety and success of alarms. He consumed additional water throughout the session with audible swallow but no overt s/sx of aspiration. Consulted with pt RE his dentist appt. PELT SHEARER offered to call to collaborate with Dr. Mckeon. The pt was agreeable to this. Of interest is if a dental block or other device may be available to assist pt in breaking the habit of chewing on his tongue, which he was observed doing occasional during the session. Initiated training in swallow exercises. Instruction was provided in writing and with demonstration. The pt returned demonstration; needs reinforcement. Discussed POC in light of the pt's limited insurance benefits and this PELT SHEARER's upcoming departure from this clinic. Agreed to f/u again next week for further training of swallow exercises and finalizing of the pt's HEP. Appts will then be reduced in frequency to two weeks, then three weeks with another PELT SHEARER to promote independence with HEP for eventual discharge. Agreed to reserve some PT/OT/ ST benefits in the event the pt has changes later in the year and is in need of them. Assessment Patient Response to Treatment Fair Rehab Potential Good Impairments Identified Expressive language,Cognitive communication,Speech,Swallow, Voice Assessment of Overall Progress Unchanged Assessment of Improvement The pt exhibited increased energy as compared to the last two sessions, likley impacted by improved consistency in medication regimen, which results from successful use of alarms. The pt exhibited audible swallows but no overt s/sx of aspiration with limited trials of pills and water. Audible swallow may indicated reduced coordination of swallow mechanism, which would increase his risk of aspiration. He also reported occasional ongoing choking on saliva and continued poor management of saliva within the oral cavity. He performed swallow exercises as instructed. An additional opportunity to practice and confirm understanding is necessary prior to reducing frequency of appts, the latter of which is recommended to conserve insurance benefits and promote independence and consistency with HEP. It is not clear to this PELT SHEARER how or why the act of swallowing saliva would increase the pt's fatigue, unless this is an indication of weakness of swallow musculature and the effort/ energy required for swallow. Continue to monitor as pt performs swallow exercises. Reviewed with Patient Goals,Progress Being Made,Home Exercise Program Patient/Caregiver Understanding Good Plan Comment 3-4 visits Comment F/U next week, then reduce frequency to 1 visit every 2-3 wks Length of Session 45 Minutes Therapeutic Contents Client Education,Cognitive- Linguistic Training,Expressive Language Training,Home Exercise Program, Intelligibility,Swallowing/ Feeding,Voice Training Provided Patient/Caregiver Instruction Home Exercise Program,Plan of Care,Questions/Concerns Therapy Recommendations Continue with Current Program
--- NOTE | 2022-02-23 15:39 | ST.OPTN ---
Visit Care Team Role Provider Type Miguel A Peng MD Attending Provider Physician Family Provider Primary Care Provider Referring Provider Address: [address] [place] [address], [facility], [place], [address] TIPPLE BOSS Treatment Note TIPPLE BOSS Clinical Instructor Line Start: 02/01/22 15:11 Freq: Status: Active Protocol: Document 02/01/22 15:11 ANGEL (Rec: 02/01/22 15:11 ANGEL [id number]) Clinical Instructor Signature Clinical Instructor Clinical Instructor Yes TIPPLE BOSS Treatment Note Start: 12/27/21 08:38 Freq: Status: Active Protocol: Document 02/23/22 14:55 ANGEL (Rec: 02/23/22 15:39 ANGEL [id number]) Speech Pathology Treatment Note Session Time Visit Start Time 09:30 Visit Stop Time 10:20 Total Visit Minutes 50 Visit Information Visit Number 02/01 Plan of Care Dates 12/27/21 - 07/23/22 [facility] Setting Treatment Setting Outpatient Care Visit Type Note Type Treatment Note Next Note Type Next Note Type Treatment Note General Information Patient History The pt is a 61-yr-old male who was diagnosed with Parkinson' s disease 3 yrs ago. He noted difficulty with speech articulation and frequently losing track of his thoughts in conversation, leading to abandonment of topics. He also c/o sores in his mouth d/t suspected unintentional bites, and thick and excessive saliva with the sensation that my throat closes up when he swallows it. He also noted new onset last week of difficulty swallowing pills and expressed concern that his teeth are breaking. He has a dentist appt scheduled for this month. The pt is being seen by PT for back pain, and ST services were recommended d/t observations of reduced speech intelligibility and drooling. Subjective Identification Type Name Observations/Patient Presentation Pt arrived on time. He reported increased sleepiness d/t reduced hours of sleep last night and decreased oral intake because sometimes I run out of time or I don't feel like eating. I don't know why. He has been consistent with taking medications on time with the help of alarms. Chief Complaint(s) Speech,Language,Swallowing, Cognitive,Voice Rehab Expectation/Goals: Patient Goals Improve speech/loudness; recall/track exprsv language; swallow easily Patient Knowledge/Awareness of TIPPLE BOSS Role Good in Treatment Parent/Caretake Knowledge/Awareness of Good TIPPLE BOSS Role in Treatment Patient/Caregiver Compliance with Home Fair Exercise Program Objective Short Term Goals 1. The pt will participate in further assessment of voice, communication skills and swallow function to guide POC. 2. The pt will sustain phonation for 10 sec with avg loudness of 70 dB or greater to improve breath support for voice, speech, and swallow safety. 3. The pt will perform oral motor exercises to improve speech intelligibility and saliva management. 4. The pt will perform laryngeal exercises to improve vocal quality and range and improve airway protection during swallow. Cad Designer Goals 1. The pt will demonstrate speech intelligibility sufficient for communicating in his home, community and work environments, as measured by pt/family reports and clinician judgment. 2. The pt will sustain phonation for 15 sec at avg loudness of 70 dB or greater to improve breath support for voice, speech and swallow safety. 3. The pt will demonstrate saliva management WFL using management strategies as needed. 4. The pt will tolerate least restrictive diet to meet his nutrition and hydration needs. Treatment Activities Assessed pt's swallow safety with thin and nectar-thick liquids, pureed and mixed textures. Wet sounding voice followed by spontaneous throat clearing was noted x1 with both thin liquids (total consumption ~6 oz) and NTLs ( total consumption 4 oz). The pt's swallow was significantly more audible with thin liquids thand NTLs, indicating possible decreased coordination of swallow; however, the pt reported greater ease swallowing thin liquids. No overt s/sx of aspiration were observed with solids. Continued training of swallow exercises prescribed at last session. No elevation of the larynx was observed via palpation with intra-oral pressure exercise performed by sucking in through an occluded straw. Mildly improved elevation was achieved both by blowing into an occluded straw and by having the pt lift pieces of paper with a straw. Significant saliva was observed on papers during the latter exercise, indicating excess saliva production and reduced saliva control. Pt also completed vocal pitch exercises, which may be a better target for hyolaryngeal displacement. The pt exhibited difficulty performing Sissy maneuver, which was modified to pressing the tongue tip behind the front teeth and the pt was able to perform. Pt required demonstration and mod verbal cues for maximal jaw opening during rapid jaw opening exercise. All HEP tasks were provided in writing for the pt. Discussed POC and agreed pt will f/u in 2 weeks and then 3 weeks to promote independence with HEP and to conserve insurance benefits. Assessment Patient Response to Treatment Fair Rehab Potential Good Impairments Identified Expressive language,Cognitive communication,Speech,Swallow, Voice Assessment of Overall Progress Unchanged Assessment of Improvement No significant difference was noted between consumption of thin vs nectar-thick liquids. With both consistencies the pt exhibited mildly wet voice x1 and spontaneously cleared his throat which improved vocal quality. With modifications and occasional prompts, the pt was able to perform swallow exercises with lingual and supraglottic muscular weakness evident. Frequency of visits will be reduced due to limited insurance benefits; however, intensive skilled intervention is medically necessary to provide greatest opportunity for improvement. Reviewed with Patient Goals,Progress Being Made,Home Exercise Program Patient/Caregiver Understanding Good Plan Comment 3-4 visits Comment Reduce frequency to 1 visit every 2-3 wks Length of Session 45 Minutes Therapeutic Contents Client Education,Cognitive- Linguistic Training,Expressive Language Training,Home Exercise Program, Intelligibility,Swallowing/ Feeding,Voice Training Provided Patient/Caregiver Instruction Home Exercise Program,Plan of Care,Questions/Concerns Therapy Recommendations Continue with Current Program
--- NOTE | 2022-03-09 17:30 | ST.OPTN ---
Visit Care Team Role Provider Type Miguel A Peng MD Attending Provider Physician Family Provider Primary Care Provider Referring Provider Address: [address] [place] [address], [facility], [place], [address] ASTROBIOLOGIST Treatment Note ASTROBIOLOGIST Clinical Instructor Line Start: 02/01/22 15:11 Freq: Status: Active Protocol: Document 02/01/22 15:11 ANGEL (Rec: 02/01/22 15:11 ANGEL [id number]) Clinical Instructor Signature Clinical Instructor Clinical Instructor Yes ASTROBIOLOGIST Treatment Note Start: 12/27/21 08:38 Freq: Status: Active Protocol: Document 03/09/22 17:23 ZS (Rec: 03/09/22 17:30 ZS [id number]) Speech Pathology Treatment Note Session Time Visit Start Time 16:35 Visit Stop Time 17:20 Total Visit Minutes 45 Visit Information Visit Number 03/04 Plan of Care Dates 12/27/21 - 07/23/22 Insurance Information [facility] Setting Treatment Setting Outpatient Care Visit Type Note Type Treatment Note Next Note Type Next Note Type Treatment Note General Information Patient History The pt is a 61-yr-old male who was diagnosed with Parkinson' s disease 3 yrs ago. He noted difficulty with speech articulation and frequently losing track of his thoughts in conversation, leading to abandonment of topics. He also c/o sores in his mouth d/t suspected unintentional bites, and thick and excessive saliva with the sensation that my throat closes up when he swallows it. He also noted new onset last week of difficulty swallowing pills and expressed concern that his teeth are breaking. He has a dentist appt scheduled for this month. The pt is being seen by PT for back pain, and ST services were recommended d/t observations of reduced speech intelligibility and drooling. Subjective Identification Type Name Observations/Patient Presentation Pt arrived late. He reported inconsistent HEP, though reported exercises are going well when he does complete them. Pt stated time is the limiting factor for not completing exercises. Chief Complaint(s) Speech,Language,Swallowing, Cognitive,Voice Rehab Expectation/Goals: Patient Goals Improve speech/loudness; recall/track exprsv language; swallow easily Patient Knowledge/Awareness of ASTROBIOLOGIST Role Good in Treatment Parent/Caretake Knowledge/Awareness of Good ASTROBIOLOGIST Role in Treatment Patient/Caregiver Compliance with Home Fair Exercise Program Objective Short Term Goals 1. The pt will participate in further assessment of voice, communication skills and swallow function to guide POC. 2. The pt will sustain phonation for 10 sec with avg loudness of 70 dB or greater to improve breath support for voice, speech, and swallow safety. 3. The pt will perform oral motor exercises to improve speech intelligibility and saliva management. 4. The pt will perform laryngeal exercises to improve vocal quality and range and improve airway protection during swallow. Senior Care Goals 1. The pt will demonstrate speech intelligibility sufficient for communicating in his home, community and work environments, as measured by pt/family reports and clinician judgment. 2. The pt will sustain phonation for 15 sec at avg loudness of 70 dB or greater to improve breath support for voice, speech and swallow safety. 3. The pt will demonstrate saliva management WFL using management strategies as needed. 4. The pt will tolerate least restrictive diet to meet his nutrition and hydration needs. Treatment Activities Continued training of swallow exercises prescribed at last session. Pt exhibited significant difficulty with sucking in through occluded straw, though was persistent with this task. Significant saliva was observed on papers during the latter exercise, indicating excess saliva production and reduced saliva control. Pt also spit into a cup to reduce saliva in his oral cavity. Pt also completed vocal pitch exercises, which may be a better target for hyolaryngeal displacement. The pt exhibited difficulty performing Sissy maneuver, which was modified to pressing the tongue tip behind the front teeth and the pt continued to exhibit difficulty. Pt required demonstration and mod verbal cues for maximal jaw opening during rapid jaw opening exercise. Completed sustained phonation exercise, pt sustained ah for avg. 9.1 seconds with an avg loudness of 75.5dB. Pitch glides completed with avg. high of 235Hz (Range: 219Hz - 244Hz) and avg. low of 132Hz (Range: 122Hz - 142Hz). Loudness dropped for functional phrases , with avg loudness of 72.5dB. All HEP tasks were provided in writing for the pt. Discussed POC and agreed pt will f/u in 2 weeks and then 3 weeks to promote independence with HEP and to conserve insurance benefits. Assessment Patient Response to Treatment Fair Rehab Potential Good Impairments Identified Expressive language,Cognitive communication,Speech,Swallow, Voice Assessment of Overall Progress Unchanged Assessment of Improvement With modifications and occasional prompts, the pt was able to perform swallow exercises with lingual and supraglottic muscular weakness evident. Frequency of visits will be reduced due to limited insurance benefits; however, intensive skilled intervention is medically necessary to provide greatest opportunity for improvement. Reviewed with Patient Goals,Progress Being Made,Home Exercise Program Patient/Caregiver Understanding Good Plan Comment 3-4 visits Comment Reduce frequency to 1 visit every 2-3 wks Length of Session 45 Minutes Therapeutic Contents Client Education,Cognitive- Linguistic Training,Expressive Language Training,Home Exercise Program, Intelligibility,Swallowing/ Feeding,Voice Training Provided Patient/Caregiver Instruction Home Exercise Program,Plan of Care,Questions/Concerns Therapy Recommendations Continue with Current Program
--- NOTE | 2022-04-01 10:29 | ST.OPTN ---
Visit Care Team Role Provider Type Miguel A Peng MD Attending Provider Physician Family Provider Primary Care Provider Referring Provider Address: [address] [place] [address], [facility], [place], [address] DRAMATIC COACH Treatment Note DRAMATIC COACH Clinical Instructor Line Start: 02/01/22 15:11 Freq: Status: Active Protocol: Document 02/01/22 15:11 ANGEL (Rec: 02/01/22 15:11 ANGEL [id number]) Clinical Instructor Signature Clinical Instructor Clinical Instructor Yes DRAMATIC COACH Treatment Note Start: 12/27/21 08:38 Freq: Status: Active Protocol: Document 04/01/22 10:22 ZS (Rec: 04/01/22 10:29 ZS [id number]) Speech Pathology Treatment Note Session Time Visit Start Time 09:35 Visit Stop Time 10:20 Total Visit Minutes 45 Visit Information Visit Number 04/04 Plan of Care Dates 12/27/21 - 07/23/22 Insurance Information [facility] Setting Treatment Setting Outpatient Care Visit Type Note Type Treatment Note Next Note Type Next Note Type Treatment Note General Information Patient History The pt is a 61-yr-old male who was diagnosed with Parkinson' s disease 3 yrs ago. He noted difficulty with speech articulation and frequently losing track of his thoughts in conversation, leading to abandonment of topics. He also c/o sores in his mouth d/t suspected unintentional bites, and thick and excessive saliva with the sensation that my throat closes up when he swallows it. He also noted new onset last week of difficulty swallowing pills and expressed concern that his teeth are breaking. He has a dentist appt scheduled for this month. The pt is being seen by PT for back pain, and ST services were recommended d/t observations of reduced speech intelligibility and drooling. Subjective Identification Type Name Observations/Patient Presentation Pt arrived late. He reported inconsistent HEP, though reported exercises are going well when he does complete them. Pt stated time is the limiting factor for not completing exercises and shared he will use any opportunity he has to practice . Pt reported he often practices his loud functional phrases at [employer] and the [employer]. Chief Complaint(s) Speech,Language,Swallowing, Cognitive,Voice Rehab Expectation/Goals: Patient Goals Improve speech/loudness; recall/track exprsv language; swallow easily Patient Knowledge/Awareness of DRAMATIC COACH Role Good in Treatment Parent/Caretake Knowledge/Awareness of Good DRAMATIC COACH Role in Treatment Patient/Caregiver Compliance with Home Fair Exercise Program Objective Short Term Goals 1. The pt will participate in further assessment of voice, communication skills and swallow function to guide POC. 2. The pt will sustain phonation for 10 sec with avg loudness of 70 dB or greater to improve breath support for voice, speech, and swallow safety. 3. The pt will perform oral motor exercises to improve speech intelligibility and saliva management. 4. The pt will perform laryngeal exercises to improve vocal quality and range and improve airway protection during swallow. Cause Analyst Goals 1. The pt will demonstrate speech intelligibility sufficient for communicating in his home, community and work environments, as measured by pt/family reports and clinician judgment. 2. The pt will sustain phonation for 15 sec at avg loudness of 70 dB or greater to improve breath support for voice, speech and swallow safety. 3. The pt will demonstrate saliva management WFL using management strategies as needed. 4. The pt will tolerate least restrictive diet to meet his nutrition and hydration needs. Treatment Activities Continued training of swallow exercises prescribed in previous session. Pt reported spitting out saliva is easier than swallowing and stated he is continuing to have difficulty swallowing. Pt added he is often not heard by his when he is talking to her from another room and is sometimes asked to repeat his order at restaurants. Completed sustained phonation exercise, pt sustained ah for avg. 12.5 seconds with an avg loudness of 75.2dB. Pitch glides completed with avg. high of 242Hz (Range: 208Hz - 275Hz) and avg. low of 94.7Hz (Range: 71Hz - 117Hz). Loudness dropped for functional phrases, with avg loudness of 74.8dB. All HEP tasks were provided in writing for the pt. Discussed POC and agreed pt will f/u in 3 weeks to promote independence with HEP and to conserve insurance benefits. Scheduled 2 appointments per month and will continue to check in with pt regarding progress and POC given limited benefits. Assessment Patient Response to Treatment Fair Rehab Potential Good Impairments Identified Expressive language,Cognitive communication,Speech,Swallow, Voice Assessment of Overall Progress Unchanged Assessment of Improvement With modifications and occasional prompts, the pt was able to perform swallow exercises with lingual and supraglottic muscular weakness evident. Frequency of visits will be reduced due to limited insurance benefits; however, intensive skilled intervention is medically necessary to provide greatest opportunity for improvement. Reviewed with Patient Goals,Progress Being Made,Home Exercise Program Patient/Caregiver Understanding Good Plan Comment 3-4 visits Comment Reduce frequency to 1 visit every 2-3 wks Length of Session 45 Minutes Therapeutic Contents Client Education,Cognitive- Linguistic Training,Expressive Language Training,Home Exercise Program, Intelligibility,Swallowing/ Feeding,Voice Training Provided Patient/Caregiver Instruction Home Exercise Program,Plan of Care,Questions/Concerns Therapy Recommendations Continue with Current Program
--- NOTE | 2022-04-19 10:40 | ST.OPTN ---
Visit Care Team Role Provider Type Miguel A Peng MD Attending Provider Physician Family Provider Primary Care Provider Referring Provider Address: [address] [place] [address], [facility], [place], [address] FITNESS CONSULTANT Treatment Note FITNESS CONSULTANT Clinical Instructor Line Start: 02/01/22 15:11 Freq: Status: Active Protocol: Document 02/01/22 15:11 ANGEL (Rec: 02/01/22 15:11 ANGEL [id number]) Clinical Instructor Signature Clinical Instructor Clinical Instructor Yes FITNESS CONSULTANT Treatment Note Start: 12/27/21 08:38 Freq: Status: Active Protocol: Document 04/19/22 10:32 ZS (Rec: 04/19/22 10:40 ZS [id number]) Speech Pathology Treatment Note Session Time Visit Start Time 09:40 Visit Stop Time 10:30 Total Visit Minutes 50 Visit Information Visit Number 05/04 Plan of Care Dates 12/27/21 - 07/23/22 Insurance Information [facility] Treatment Setting Outpatient Care Visit Type Note Type Treatment Note Next Note Type Next Note Type Treatment Note General Information Patient History The pt is a 61-yr-old male who was diagnosed with Parkinson' s disease 3 yrs ago. He noted difficulty with speech articulation and frequently losing track of his thoughts in conversation, leading to abandonment of topics. He also c/o sores in his mouth d/t suspected unintentional bites, and thick and excessive saliva with the sensation that my throat closes up when he swallows it. He also noted new onset last week of difficulty swallowing pills and expressed concern that his teeth are breaking. He has a dentist appt scheduled for this month. The pt is being seen by PT for back pain, and ST services were recommended d/t observations of reduced speech intelligibility and drooling. Subjective Identification Type Name Observations/Patient Presentation Pt arrived late. He reported inconsistent HEP, though reported exercises are going well when he does complete them. He reported difficulty with the straw exercise, stating he does not have a flat surface on which to do this exercise at home. Pt stated time is the limiting factor for not completing exercises and shared he will use any opportunity he has to practice. Chief Complaint(s) Speech,Language,Swallowing, Cognitive,Voice Rehab Expectation/Goals: Patient Goals Improve speech/loudness; recall/track exprsv language; swallow easily Patient Knowledge/Awareness of FITNESS CONSULTANT Role Good in Treatment Parent/Caretake Knowledge/Awareness of Good FITNESS CONSULTANT Role in Treatment Patient/Caregiver Compliance with Home Fair Exercise Program Objective Short Term Goals 1. The pt will participate in further assessment of voice, communication skills and swallow function to guide POC. 2. The pt will sustain phonation for 10 sec with avg loudness of 70 dB or greater to improve breath support for voice, speech, and swallow safety. 3. The pt will perform oral motor exercises to improve speech intelligibility and saliva management. 4. The pt will perform laryngeal exercises to improve vocal quality and range and improve airway protection during swallow. Medical Economics Consultant Goals 1. The pt will demonstrate speech intelligibility sufficient for communicating in his home, community and work environments, as measured by pt/family reports and clinician judgment. 2. The pt will sustain phonation for 15 sec at avg loudness of 70 dB or greater to improve breath support for voice, speech and swallow safety. 3. The pt will demonstrate saliva management WFL using management strategies as needed. 4. The pt will tolerate least restrictive diet to meet his nutrition and hydration needs. Treatment Activities Continued training of swallow exercises prescribed in previous session. Pt reported spitting out saliva is easier than swallowing and stated he is continuing to have difficulty swallowing. Pt added he is often not heard by his when he is talking to her from another room and is sometimes asked to repeat his order at restaurants. Completed sustained phonation exercise, pt sustained ah for avg. 10.0 seconds with an avg loudness of 80.0dB. New technology used to record dB and Hz today, which may impact values. Pitch glides completed with avg. high of 322.3Hz (Range: 286Hz - 384Hz) and avg. low of 79.3Hz (Range : 60Hz - 107Hz). Loudness dropped for functional phrases , with avg loudness of 75dB. All HEP tasks were provided in writing for the pt. Pt reported difficulty with word finding and strategies were provided for finding words. Practiced word finding strategies and pt was observed to identify objects, but did not form complete sentences to describe an object (e.g., describing a computer mouse, pt said clicker spinner left and right and hand). Discussed POC and agreed pt will f/u in 3 weeks to promote independence with HEP and to conserve insurance benefits. Scheduled 2 appointments per month and will continue to check in with pt regarding progress and POC given limited benefits. Assessment Patient Response to Treatment Fair Rehab Potential Good Impairments Identified Expressive language,Cognitive communication,Speech,Swallow, Voice Assessment of Overall Progress Unchanged Assessment of Improvement With modifications and occasional prompts, the pt was able to perform swallow exercises with lingual and supraglottic muscular weakness evident. Frequency of visits will be reduced due to limited insurance benefits; however, intensive skilled intervention is medically necessary to provide greatest opportunity for improvement. Reviewed with Patient Goals,Progress Being Made,Home Exercise Program Patient/Caregiver Understanding Good Plan Comment 3-4 visits Comment Reduce frequency to 1 visit every 2-3 wks Length of Session 45 Minutes Therapeutic Contents Client Education,Cognitive- Linguistic Training,Expressive Language Training,Home Exercise Program, Intelligibility,Swallowing/ Feeding,Voice Training Provided Patient/Caregiver Instruction Home Exercise Program,Plan of Care,Questions/Concerns Therapy Recommendations Continue with Current Program
--- NOTE | 2022-05-03 11:30 | ST.OPTN ---
Visit Care Team Role Provider Type Miguel A Peng MD Attending Provider Physician Family Provider Primary Care Provider Referring Provider Address: [address] [place] [address], [facility], [place], [address] SCRAP DEALER Treatment Note SCRAP DEALER Clinical Instructor Line Start: 02/01/22 15:11 Freq: Status: Active Protocol: Document 02/01/22 15:11 ANGEL (Rec: 02/01/22 15:11 ANGEL [id number]) Clinical Instructor Signature Clinical Instructor Clinical Instructor Yes SCRAP DEALER Treatment Note Start: 12/27/21 08:38 Freq: Status: Active Protocol: Document 05/03/22 11:24 ZS (Rec: 05/03/22 11:30 ZS [id number]) Speech Pathology Treatment Note Session Time Visit Start Time 09:30 Visit Stop Time 10:15 Total Visit Minutes 45 Visit Information Visit Number 06/04 Plan of Care Dates 12/27/21 - 07/23/22 Insurance Information [facility] Treatment Setting Outpatient Care Visit Type Note Type Treatment Note Next Note Type Next Note Type Treatment Note General Information Patient History The pt is a 61-yr-old male who was diagnosed with Parkinson' s disease 3 yrs ago. He noted difficulty with speech articulation and frequently losing track of his thoughts in conversation, leading to abandonment of topics. He also c/o sores in his mouth d/t suspected unintentional bites, and thick and excessive saliva with the sensation that my throat closes up when he swallows it. He also noted new onset last week of difficulty swallowing pills and expressed concern that his teeth are breaking. He has a dentist appt scheduled for this month. The pt is being seen by PT for back pain, and ST services were recommended d/t observations of reduced speech intelligibility and drooling. Subjective Identification Type Name Observations/Patient Presentation Pt arrived on time. He reported inconsistent HEP, though reported exercises are going well when he does complete them. He reported difficulty with the straw exercise, stating he does not have a flat surface on which to do this exercise at home, [employer] got busy, and he does not have time on break at work. Pt stated time is the limiting factor for not completing exercises and shared he will use any opportunity he has to practice . Pt reported experiencing increased difficulty with saliva, breathing, and tremors in his hands today and added he took his medications just prior to the appointment. Chief Complaint(s) Speech,Language,Swallowing, Cognitive,Voice Rehab Expectation/Goals: Patient Goals Improve speech/loudness; recall/track exprsv language; swallow easily Patient Knowledge/Awareness of SCRAP DEALER Role Good in Treatment Parent/Caretake Knowledge/Awareness of Good SCRAP DEALER Role in Treatment Patient/Caregiver Compliance with Home Fair Exercise Program Objective Short Term Goals 1. The pt will participate in further assessment of voice, communication skills and swallow function to guide POC. 2. The pt will sustain phonation for 10 sec with avg loudness of 70 dB or greater to improve breath support for voice, speech, and swallow safety. 3. The pt will perform oral motor exercises to improve speech intelligibility and saliva management. 4. The pt will perform laryngeal exercises to improve vocal quality and range and improve airway protection during swallow. 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 The pt will demonstrate speech intelligibility sufficient for communicating in his home, community and work environments, as measured by pt/family reports and clinician judgment. 2. The pt will sustain phonation for 15 sec at avg loudness of 70 dB or greater to improve breath support for voice, speech and swallow safety. 3. The pt will demonstrate saliva management WFL using management strategies as needed. 4. The pt will tolerate least restrictive diet to meet his nutrition and hydration needs. Treatment Activities Continued training of swallow exercises prescribed in previous session. Pt reported spitting out saliva is easier than swallowing and stated he is continuing to have difficulty swallowing. 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 Completed sustained phonation exercise, pt sustained ah for avg. 8.9 seconds with an avg loudness of 82.4dB. Pitch glides completed with avg. high of 283.4Hz (Range: 248Hz - 311Hz) and avg. low of 83Hz (Range: 64Hz - 108Hz). Loudness dropped for functional phrases , with avg loudness of 77.4dB. Conversational loudness avg. 73.5dB. All HEP tasks were provided in writing for the pt. 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 Assessment Patient Response to Treatment Fair Rehab Potential Good Impairments Identified Expressive language,Cognitive communication,Speech,Swallow, Voice Assessment of Overall Progress Unchanged Assessment of Improvement With modifications and occasional prompts, the pt was able to perform swallow exercises with lingual and supraglottic muscular weakness evident. Frequency of visits will be reduced due to limited insurance benefits; however, intensive skilled intervention is medically necessary to provide greatest opportunity for improvement. Reviewed with Patient Goals,Progress Being Made,Home Exercise Program Patient/Caregiver Understanding Good Plan Comment 3-4 visits Comment Reduce frequency to 1 visit every 2-3 wks Length of Session 45 Minutes Therapeutic Contents Client Education,Cognitive- Linguistic Training,Expressive Language Training,Home Exercise Program, Intelligibility,Swallowing/ Feeding,Voice Training Provided Patient/Caregiver Instruction Home Exercise Program,Plan of Care,Questions/Concerns Therapy Recommendations Continue with Current Program
--- NOTE | 2022-05-17 11:09 | ST.OPTN ---
Visit Care Team Role Provider Type Miguel A Peng MD Attending Provider Physician Family Provider Primary Care Provider Referring Provider Address: [address] [place] [address], [facility], [place], [address] WATER CONSERVATION SPECIALIST Treatment Note WATER CONSERVATION SPECIALIST Clinical Instructor Line Start: 02/01/22 15:11 Freq: Status: Active Protocol: Document 02/01/22 15:11 ANGEL (Rec: 02/01/22 15:11 ANGEL [id number]) Clinical Instructor Signature Clinical Instructor Clinical Instructor Yes WATER CONSERVATION SPECIALIST Treatment Note Start: 12/27/21 08:38 Freq: Status: Active Protocol: Document 05/17/22 10:59 ZS (Rec: 05/17/22 11:09 ZS [id number]) Speech Pathology Treatment Note Session Time Visit Start Time 10:10 Visit Stop Time 11:00 Total Visit Minutes 50 Visit Information Visit Number 07/04 Plan of Care Dates 05/17/22 - 07/23/22 Insurance Information [facility] Setting Treatment Setting Outpatient Care Visit Type Note Type Treatment Note Next Note Type Next Note Type Treatment Note General Information Patient History The pt is a 61-yr-old male who was diagnosed with Parkinson' s disease 3 yrs ago. He noted difficulty with speech articulation and frequently losing track of his thoughts in conversation, leading to abandonment of topics. He also c/o sores in his mouth d/t suspected unintentional bites, and thick and excessive saliva with the sensation that my throat closes up when he swallows it. He also noted new onset last week of difficulty swallowing pills and expressed concern that his teeth are breaking. He has a dentist appt scheduled for this month. The pt is being seen by PT for back pain, and ST services were recommended d/t observations of reduced speech intelligibility and drooling. Subjective Identification Type Name Observations/Patient Presentation Pt arrived on time. He reported inconsistent HEP, though reported exercises are going well when he does complete them. He reported difficulty with the straw exercise, stating he does not have a flat surface on which to do this exercise at home. Pt reported trying to use his 's hutch and will try a table or large book while sitting on the couch between now and next session. Pt stated time is the limiting factor for not completing exercises and shared he will use any opportunity he has to practice. 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 Chief Complaint(s) Speech,Language,Swallowing, Cognitive,Voice Rehab Expectation/Goals: Patient Goals Improve speech/loudness; recall/track exprsv language; swallow easily Patient Knowledge/Awareness of WATER CONSERVATION SPECIALIST Role Good in Treatment Parent/Caretake Knowledge/Awareness of Good WATER CONSERVATION SPECIALIST Role in Treatment Patient/Caregiver Compliance with Home Fair Exercise Program Objective Short Term Goals 1. The pt will participate in further assessment of voice, communication skills and swallow function to guide POC. - Goal met. Discharge goal. 2. The pt will sustain phonation for 10 sec with avg loudness of 70 dB or greater to improve breath support for voice, speech, and swallow safety. - Goal not met, progress made. 3. The pt will perform oral motor exercises to improve speech intelligibility and saliva management. - Goal met, continue goal for maintenance . 4. The pt will perform laryngeal exercises to improve vocal quality and range and improve airway protection during swallow. - Goal met, continue goal for maintenance. 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 The pt will demonstrate speech intelligibility sufficient for communicating in his home, community and work environments, as measured by pt/family reports and clinician judgment. 2. The pt will sustain phonation for 15 sec at avg loudness of 70 dB or greater to improve breath support for voice, speech and swallow safety. 3. The pt will demonstrate saliva management WFL using management strategies as needed. 4. The pt will tolerate least restrictive diet to meet his nutrition and hydration needs. Treatment Activities Continued training of swallow exercises prescribed in previous session. Pt reported spitting out saliva is easier than swallowing and stated he is continuing to have difficulty swallowing. Completed sustained phonation exercise, pt sustained ah for avg. 9.4 seconds with an avg loudness of 79.6dB. Pitch glides completed with avg. high of 365Hz (Range: 319Hz - 398Hz) and avg. low of 77.25Hz (Range: 68Hz - 90Hz). Loudness dropped for functional phrases, with avg loudness of 75.4dB. All HEP tasks were provided in writing for the pt. Assessment Patient Response to Treatment Fair Rehab Potential Good Impairments Identified Expressive language,Cognitive communication,Speech,Swallow, Voice Assessment of Overall Progress Unchanged Assessment of Improvement Pt has demonstrated limited progress in sustained phonation, with a decreased in loudness across past 2 sessions. However, increase in duration observed, and pt increased volume with additional verbal cues provided. He has met his HEP goals, independently completing exercises when provided with a written description of each exercise. Recommend continuing therapy to increase independence and knowledge of sustained phonation task and impact of Parkinson's disease on voice. With modifications and occasional prompts, the pt was able to perform swallow exercises with lingual and supraglottic muscular weakness evident. Frequency of visits will be reduced due to limited insurance benefits; however, intensive skilled intervention is medically necessary to provide greatest opportunity for improvement. Reviewed with Patient Goals,Progress Being Made,Home Exercise Program Patient/Caregiver Understanding Good Plan Comment 3-4 visits Comment Reduce frequency to 1 visit every 2-3 wks Length of Session 45 Minutes Therapeutic Contents Client Education,Cognitive- Linguistic Training,Expressive Language Training,Home Exercise Program, Intelligibility,Swallowing/ Feeding,Voice Training Provided Patient/Caregiver Instruction Home Exercise Program,Plan of Care,Questions/Concerns Therapy Recommendations Continue with Current Program
--- NOTE | 2022-05-17 11:09 | ST.OPPOC ---
Physical, Occupational & Speech Therapy At [facility] Visit Care Team Role Provider Type Miguel A Peng MD Attending Provider Physician Family Provider Primary Care Provider Referring Provider Address: [address] [place] [address], [facility] [place], [address] Speech Pathology Plan of Care SPINNERET CLEANER Clinical Instructor Line Start: 02/01/22 15:11 Freq: Status: Active Protocol: Document 02/01/22 15:11 ANGEL (Rec: 02/01/22 15:11 ANGEL [id number]) Clinical Instructor Signature Clinical Instructor Clinical Instructor Yes Speech Pathology Plan of Care Plan of Care Dates 05/17/22 - 07/23/[address] Miguel A Peng Patient History The pt is a 61-yr-old male who was diagnosed with Parkinson's disease 3 yrs ago. He noted difficulty with speech articulation and frequently losing track of his thoughts in conversation, leading to abandonment of topics. He also c/o sores in his mouth d/t suspected unintentional bites, and thick and excessive saliva with the sensation that my throat closes up when he swallows it. He also noted new onset last week of difficulty swallowing pills and expressed concern that his teeth are breaking. He has a dentist appt scheduled for this month. The pt is being seen by PT for back pain, and ST services were recommended d/t observations of reduced speech intelligibility and drooling. Impairments Identified Expressive language,Cognitive communication, Speech,Swallow,Voice Short Term Goals 1. The pt will participate in further assessment of voice, communication skills and swallow function to guide POC. - Goal met. Discharge goal. 2. The pt will sustain phonation for 10 sec with avg loudness of 70 dB or greater to improve breath support for voice, speech, and swallow safety. - Goal not met, progress made. 3. The pt will perform oral motor exercises to improve speech intelligibility and saliva management. - Goal met, continue goal for maintenance. 4. The pt will perform laryngeal exercises to improve vocal quality and range and improve airway protection during swallow. - Goal met, continue goal for maintenance. Verifying Machine Operator Goals 1. The pt will demonstrate speech intelligibility sufficient for communicating in his home, community and work environments, as measured by pt/family reports and clinician judgment. 2. The pt will sustain phonation for 15 sec at avg loudness of 70 dB or greater to improve breath support for voice, speech and swallow safety. 3. The pt will demonstrate saliva management WFL using management strategies as needed. 4. The pt will tolerate least restrictive diet to meet his nutrition and hydration needs. Comment: Electronically Signed by: RAFFAELE Andrew 05/17/22 0007 If you are in agreement with this Plan of Care, please return a signed and dated copy. I have reviewed this Plan of Care and certify that the skilled therapy services above are required to meet the patient?s needs. Physician Signature Date Printed Name and Credentials Clinical Instructor Signature Printed Name and Credentials
--- NOTE | 2022-05-31 11:30 | ST.OPDS ---
Visit Care Team Role Provider Type Miguel A Peng MD Attending Provider Physician Family Provider Primary Care Provider Referring Provider Address: [address] [place] [address], [facility], [place], [address] RESORT KEEPER Treatment Note RESORT KEEPER Clinical Instructor Line Start: 02/01/22 15:11 Freq: Status: Active Protocol: Document 02/01/22 15:11 ANGEL (Rec: 02/01/22 15:11 ANGEL [id number]) Clinical Instructor Signature Clinical Instructor Clinical Instructor Yes RESORT KEEPER Treatment Note Start: 12/27/21 08:38 Freq: Status: Active Protocol: Document 05/31/22 10:39 ZS (Rec: 05/31/22 10:41 ZS [id number]) Speech Pathology Treatment Note Session Time Visit Start Time 10:45 Visit Stop Time 11:15 Total Visit Minutes 30 Visit Information Visit Number 08/04 Plan of Care Dates 05/17/22 - 07/23/22 [facility] Treatment Setting Outpatient Care Visit Type Note Type Discharge Summary General Information Patient History The pt is a 61-yr-old male who was diagnosed with Parkinson' s disease 3 yrs ago. He noted difficulty with speech articulation and frequently losing track of his thoughts in conversation, leading to abandonment of topics. He also c/o sores in his mouth d/t suspected unintentional bites, and thick and excessive saliva with the sensation that my throat closes up when he swallows it. He also noted new onset last week of difficulty swallowing pills and expressed concern that his teeth are breaking. He has a dentist appt scheduled for this month. The pt is being seen by PT for back pain, and ST services were recommended d/t observations of reduced speech intelligibility and drooling. Subjective Identification Type Name Observations/Patient Presentation Pt arrived late. He reported inconsistent HEP, though reported exercises are going well when he does complete them. He reported difficulty with the straw exercise, stating he does not have a flat surface on which to do this exercise at home. Pt reported he did not try a table or large book while sitting on the couch. Pt stated time is the limiting factor for not completing exercises and shared he will use any opportunity he has to practice. 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 Chief Complaint(s) Speech,Language,Swallowing, Cognitive,Voice Rehab Expectation/Goals: Patient Goals Improve speech/loudness; recall/track exprsv language; swallow easily Patient Knowledge/Awareness of RESORT KEEPER Role Good in Treatment Parent/Caretake Knowledge/Awareness of Good RESORT KEEPER Role in Treatment Patient/Caregiver Compliance with Home Fair Exercise Program Objective Short Term Goals 1. The pt will participate in further assessment of voice, communication skills and swallow function to guide POC. - Goal met. Discharge goal. 2. The pt will sustain phonation for 10 sec with avg loudness of 70 dB or greater to improve breath support for voice, speech, and swallow safety. - Goal not met, progress made. 3. The pt will perform oral motor exercises to improve speech intelligibility and saliva management. - Goal met, continue goal for maintenance . 4. The pt will perform laryngeal exercises to improve vocal quality and range and improve airway protection during swallow. - Goal met, continue goal for maintenance. Family Practitioner Goals 1. The pt will demonstrate speech intelligibility sufficient for communicating in his home, community and work environments, as measured by pt/family reports and clinician judgment. 2. The pt will sustain phonation for 15 sec at avg loudness of 70 dB or greater to improve breath support for voice, speech and swallow safety. 3. The pt will demonstrate saliva management WFL using management strategies as needed. 4. The pt will tolerate least restrictive diet to meet his nutrition and hydration needs. Treatment Activities Continued training of swallow exercises prescribed in previous session. Completed sustained phonation exercise, pt sustained ah for avg. 10. 6 seconds with an avg loudness of 76.4dB. Pitch glides completed with avg. high of 289.6Hz (Range: 273Hz - 297Hz) and avg. low of 143.2Hz ( Range: 95-168Hz). Loudness dropped for functional phrases , with avg loudness of 77.2dB and continued to drop for conversational speech, with avg loudness of 70dB. All HEP tasks were provided in writing for the pt. Discussed discharge given consistency in home practice, effective communication in a variety of environments, and plateaued progress in therapy sessions. Assessment Patient Response to Treatment Fair Rehab Potential Good Impairments Identified Expressive language,Cognitive communication,Speech,Swallow, Voice Assessment of Overall Progress Unchanged Assessment of Improvement Pt has demonstrated limited progress in sustained phonation, with a decrease in loudness across past 3 sessions. However, increase in duration observed, and pt increased volume with additional verbal cues provided. He has met his HEP goals, independently completing exercises when provided with a written description of each exercise. Recommend continuing therapy to increase independence and knowledge of sustained phonation task and impact of Parkinson's disease on voice. Pt reported between verbal prompts to be louder and preferred people at work and in restaurants, loudness is not a barrier to communication at this time. He is independent in HEP, though consistency with these has been challenging. Discharging from therapy due to plateaued progress in sessions, reduced barriers to communication with effective communication of wants and needs, and independence with HEP for continued practice in home environment. Reviewed with Patient Goals,Progress Being Made,Home Exercise Program Patient/Caregiver Understanding Good Plan Therapeutic Contents Client Education,Cognitive- Linguistic Training,Expressive Language Training,Home Exercise Program, Intelligibility,Swallowing/ Feeding,Voice Training Provided Patient/Caregiver Instruction Home Exercise Program,Plan of Care,Questions/Concerns Therapy Recommendations Discharge to Home Exercise Program,Discharge from Speech Therapy Reason for Discharge Plateaued progress, independence with HEP
== END 2022-05-31 13:17 ==
LOC: SP 10:30
PROVIDERS: Family Provider Family Medicine; PCP Family Medicine; Referring Provider Family Medicine; Visit Provider Family Medicine
DX: G20 Parkinson's disease (principal)
CPT/HCPCS: 92507; 92520; 92524; 92526; 92610

== ENCOUNTER 2022-08-15 20:12 | Emergency (ER) | payer OTHER, SELFPAY ==
[2022-08-15 20:17] VITALS: BP 186/107; PULSE 63; RESP 16; TEMP 37.1; O2SAT 97; BMI 20.9
--- NOTE | 2022-08-15 20:34 | DI.CT.S_ITS ---
PROCEDURE: CT HEAD/BRAIN WO CON INDICATIONS: fall, hit head TECHNIQUE: Noncontrast 4.5 mm thick angled axial sections acquired from the foramen magnum to the vertex, with coronal and sagittal reformats. For radiation dose reduction, the following was used: automated exposure control, adjustment of mA and/or kV according to patient size. COMPARISON: None. FINDINGS: Image quality: Excellent. CSF spaces: Basal cisterns are patent. No extra-axial fluid collections. Ventricles are normal in size and shape. Brain: No intracranial hemorrhage, mass, or mass effect. Amaya-white matter interface appears preserved. Skull and face: Calvarium and visualized facial bones are intact, without suspicious lesions. Sinuses: Visualized sinuses demonstrate opacification of the visualized right maxillary sinus as well as partial opacification of a few right ethmoid air cells. There is mucosal thickening also noted within the right frontal sinus. The mastoid air cells are clear. IMPRESSION: 1. No acute intracranial abnormality. 2. Right-sided sinus mucosal disease most prominent within the right maxillary sinus which demonstrates complete opacification. Dictated by: Troy Castro M.D. on 08/15/2022 at 21:03 Approved by: Troy Castro M.D. on 08/15/2022 at 21:06
--- NOTE | 2022-08-15 20:34 | DI.CT.S_ITS ---
PROCEDURE: CT CERVICAL SPINE WO CON INDICATIONS: fall, head injury TECHNIQUE: Noncontrast 3 mm thick sections acquired from the skull base to the T4 level. Sagittal and coronal reformats were then constructed. For radiation dose reduction, the following was used: automated exposure control, adjustment of mA and/or kV according to patient size. COMPARISON: None. FINDINGS: Image quality: Excellent. Bones: No fractures or subluxation. There is multilevel degenerative disc disease and facet joint arthropathy. Visualized superior ribs are intact. Soft tissues: Prevertebral soft tissues are normal in thickness. No paravertebral hematomas. No apical pneumothoraces. IMPRESSION: 1. No fracture or subluxation. Dictated by: Troy Castro M.D. on 08/15/2022 at 21:06 Approved by: Troy Castro M.D. on 08/15/2022 at 21:08
--- NOTE | 2022-08-15 21:39 | ED_ITS ---
HPI - Wound/Laceration General Chief Complaint: Wound/Laceration Stated Complaint: GLF, head lac Time Seen by Provider: 08/15/22 20:31 Source: EMS Mode of arrival: EMS History of Present Illness HPI narrative: 61-year-old gentleman with a history of Parkinson's disease who stumbled outside and fell forward into some decorative rocks close to their home. Hit his forehead with a laceration high midline forehead and has no additional comp laints of pain. Describes this purely as a mechanical fall. There was no loss of consciousness. Reports no recent change to his baseline Parkinson's symptoms. No recent fevers, cough, chills, vomiting, diarrhea, abdominal pain. Related Data Home Medications Medication Instructions Recorded Confirmed carbidopa 25 mg-levodopa 100 mg 1 tab PO QID 03/23/21 05/13/21 tablet donepezil 10 mg tablet 10 mg PO DAILY 03/23/21 05/13/21 entacapone 200 mg tablet 200 mg PO QID 03/23/21 05/13/21 Previous Rx's Medication Instructions Recorded omeprazole 20 mg capsule,delayed 20 mg PO BID gastritis #60 caps 09/04/18 release Allergies Allergy/AdvReac Type Severity Reaction Status Date / Time No Known Drug Allergies Allergy Verified 08/15/22 20:19 Review of Systems Review of Systems Narrative: Remainder of complete review of systems is otherwise unremarkable except for that included in the HPI. Patient History Medical History (Updated 08/16/22 @ 03:46 by Sylvie Carlos MD) Parkinsons disease Social History marital status: household members: spouse occupational status: employed Smoking Status: Never smoker Smoking Status: Never smoker Exam Initial Vital Signs Initial Vital Signs: Vital Signs Temperature 98.7 F 08/15/22 20:17 Pulse Rate 63 08/15/22 20:17 Respiratory Rate 16 08/15/22 20:17 Blood Pressure 186/107 H 08/15/22 20:17 Pulse Oximetry 97 08/15/22 20:17 Oxygen Delivery Method 08/15/22 20:17 General: Healthy appearing, in no acute distress. Able to give a complete and coherent history. Well-nourished well-developed HEENT: Moist mucous membranes, normal sclera with reactive pupils, 4 cm laceration to the midline forehead into his hairline. Neck: No JVD, mild paraspinous tenderness. Respiratory: Lungs are clear to auscultation, no wheezing no rales no rhonchi. Full and symmetrical air movement Cardiac: Regular rate and rhythm no murmurs no bruits Abdomen: Soft, nontender, good bowel tones, no flank pain Skin: Warm and dry, no rashes Neurologic: Grossly neurologically intact with no obvious asymmetries or abnormalities Extremities: Complaining of some tenderness into his shoulders but no overt trauma, full and nontender range of motion at shoulders elbows and wrists bilaterally Psych: Cooperative, appropriate insight and affect Procedures Laceration Repair Forehead: Site: face Size (cm): 4 Description: irregular and clean Depth: simple, single layer Local Anesthetic: lidocaine 1% and with epi Amount of anesthesia used (mL): 3 Pre-repair: wound explored, irrigated extensively and deep structures intact Skin layer closed with: nylon Skin layer suture size: 4-0 Number of sutures: 5 Technique: simple, interrupted Course Orders Ordered: ED Orders 08/15/22 20:34 CT cervical spine wo con Stat CT head/brain wo con Stat Discontinued Medications Acetaminophen (Acetaminophen 325 Mg Tablet) 975 mg PO NOW ONE Stop: 08/15/22 22:02 Last Admin: 08/15/22 22:05 Dose: 975 mg Documented By: DEEPTI Bacitracin (Bacitracin Oint 0.9 Gm Pckt) 1 applic TOP NOW ONE Stop: 08/15/22 20:35 Last Admin: 08/15/22 22:06 Dose: 1 applic Documented By: DEEPTI Vital Signs Vital signs: Vital Signs - 8 hr 08/15/22 20:17 08/15/22 22:09 Temperature 98.7 F Pulse Rate 63 62 Respiratory Rate 16 Blood Pressure 186/107 H 167/97 H Pulse Oximetry 97 97 Oxygen Delivery Method Room Air Room Air MDM - Wound/Laceration MDM Narrative Medical decision making narrative: CC: Mechanical fall, hitting head, forehead laceration Complicating co-morbidities: Parkinson's disease Corroborating data: Data collected from: patient, Medical records reviewed: None are available Differential considered: Simple laceration, intracranial hemorrhage, stroke, syncope, Parkinson's exacerbation, infection, sepsis, cardiac arrhythmia, mechanical fall Exam documented above, pertinent findings include: Laceration with no acute bony injuries appreciated on complete exam Lab Test considered however with minimal findings and normal CT scans chose not to add additional blood work Imaging studies independently reviewed: Brain CT and cervical spine CT without acute abnormalities Treatments: Laceration is sutured, given oral pain medications Discussion: Mechanical fall with laceration that has been repaired no evidence of intracranial hemorrhage or cervical spine injury. He is noticing more aches and pains as the evening goes by reassured him that this is normal and to be expected. Recommended continued Tylenol use he declined any narcotic pain medication. Imaging studies reviewed with patient and his . Questions are answered and he is safe for discharge home Disposition: see below, along with detailed discharge instructions that have been reviewed with patient as well as indications for ED re-evaluation and additional outpatient follow up Discharge Plan Departure Patient Disposition: Home Clinical Impression: Laceration Head injury Qualifiers: Encounter type: initial encounter Qualified Code(s): S09.90XA - Unspecified injury of head, initial encounter Instructions: DI for Laceration Repair Activity Restrictions/Additional Instructions: Thank you for coming in today We did a CT scan of your head and her neck, both of which were very reassuring. You do have a good laceration to the top of your forehead that was repaired with 5 stitches. The stitches will need to come out on or about August 25. If you want to keep a dressing over that it is fine, it is also okay to leave it open. I think your hair will cover most of the wound so it will not be obvious. It is very unusual for facial injuries to become infected, if you do notice increasing redness or drainage you do need to return to the emergency department. Please do expect bruising around the area. I would also expect increasing musculoskeletal pain in your arms shoulders back and neck over the next 48 hours. You did have a fairly significant fall and much of your attention was diverted to your head bleeding. Now that that has been fixed your going to notice all of the other aches and pains. Please do continue to use your Tylenol. If you find that you are getting worse or develop any new symptoms, please feel free to return to the emergency department for further evaluation. Prescriptions: No Action omeprazole 20 mg capsule,delayed release(DR/EC) 20 mg PO BID Qty: 60 3RF donepezil 10 mg tablet 10 mg PO DAILY entacapone 200 mg tablet 200 mg PO QID Rx Instructions: administer at the same time as l-dopa/carbidopa dose carbidopa-levodopa 25-100 mg tablet 1 tab PO QID Referrals: Miguel A Peng MD [Primary Care Provider] - Stand Alone Forms: Patient Portal/API
[2022-08-15] MEDS: ACETAMINOPHEN 325 MG TABLET 975 MG PO (22:05)
[2022-08-15] MEDS: BACITRACIN OINT 0.9 GM PCKT 1 APPLIC TOP (22:06)
[2022-08-15 22:09] VITALS: BP 167/97; PULSE 62; O2SAT 97
== END 2022-08-15 22:15 | disposition home or self-care (01) ==
PROVIDERS: Emergency Provider Emergency Medicine; Family Provider Family Medicine; PCP Family Medicine
DX: S01.81XA Laceration without foreign body of other part of head, initial encounter (principal); W18.30XA Fall on same level, unspecified, initial encounter
CPT/HCPCS: 12013; 70450; 72125; 99284

== ENCOUNTER 2023-01-06 12:24 | Day surgery (SDC) | payer OTHER, SELFPAY ==
[2023-01-05 07:18] VITALS: BMI 23.5
[2023-01-06] VITALS (7 sets, daily range): BP systolic 131–159; BP diastolic 86–98; PULSE 45–56; RESP 14–19; TEMP 36.5–36.7; O2SAT 95–100; BMI 23.5
[2023-01-06] MEDS: LACTATED RINGERS 1,000 ML 100 ML IV (13:22)
--- NOTE | 2023-01-06 14:20 | PM.PREOP ---
Pre-operative Note Interval Note History & Physical reviewed/Exam performed by Physician: Yes Changes to H&P: No
[2023-01-06] MEDS: CEFAZOLIN 2 GM/100 ML PREMIX 100 ML IV (14:25)
--- NOTE | 2023-01-06 14:32 | SUR.OPER ---
Supine on padded OR bed, head on pillow, arms secured on padded arm boards at <90 degrees abduction, legs uncrossed, safety belt at thigh, tape over blanket over lower legs.
[2023-01-06] MEDS: LIDOCAINE 1% 20 ML INJ (14:38)
[2023-01-06] MEDS: BUPIVACAINE 0.25% (PF) VIAL 30 ML INJ (14:47)
--- NOTE | 2023-01-06 15:34 | P.OP_ITS ---
Operative Date/Time/Diagnoses Date of procedure: 01/06/23 Time of procedure: 15:34 Pre-op diagnosis: left inguinal hernia Post-op diagnosis: same Procedure & Clinicians Procedure: open left inguinal hernia repair Same procedure as scheduled: Yes Indications: Symptomatic left inguinal hernia repair, hx lewy body dementia. Surgeon: Robbin Desai Click Yes if Unassisted: Yes Anesthesia Type: Sedation Operative Notes Findings: direct floor defect. no indirect hernia Specimen(s): none sent Estimated Blood Loss (mL): 20 Procedure in detail: The patient was placed supine on the table and bilateral lower extremity compression devices were applied. He received Ancef prior to skin incision. Minimal sedation was provided by anesthesia to minimize the cognitive effect on his Lewy body dementia. A time-out was performed. They were prepped and draped in sterile fashion. The left external inguinal ring and the anterior superior iliac crest were identified and marked. 1 finger breath above the inguinal ligament the skin was infiltrated with 0.25% bupivacaine. The skin incision was made, the subcutaneous tissues were divided with electrocautery exposing the external oblique aponeurosis which was then opened along the direction of its fibers. Using blunt dissection the internal oblique aporneurosis was from the external oblique upper leaflet. The cord was carefully dissected away from the inguinal canal adjacent to the pubic tubercle. The cord including the vas deferens, testicular bloody supply, ilioguinal and genital nerve were encircled with a [place] drain. A direct floor defect was identified and it was reduced into the abdomen and the internal oblique aporneuorsis was approximated to the inguinal ligament with Ethibond suture to reapproximate the floor over a plug of mesh. The cremasteric fibers surrounding the cord were divided adjacent to the internal ring. The vas deferens and the testicular vessels were preserved and protected. The cord contents were carefully explored. There was no evidence of a indirect hernia there was a cord lipoma which was dissected off of the cord content. A 7x 15 cm lightweight Bard Pro Loop hernia mesh was anchored to the insertion of the rectus muscle at the pubic tubercle such that there was approximately 2 cm of tubercle overlap with Ethibond. The inferior edge of the mesh was secured to the shelving edge of the inguinal ligament using Ethibond. Interrupted 3 0 Vicryl suture was used to anchor the superior aspect of the mesh to the conjoined tendon in several places. The tails were then reapproximated loosely around the spermatic cord. The tails of the mesh were then tucked under the external oblique aponeurosis. The repair was checked for hemostasis. The wound was irrigated with sterile saline. The external oblique aponeurosis was reapproximated in a running fashion using 3 0 Vicryl. The subcutaneous tissues were reapproximated with 3 0 Vicryl skin closed with 4 0 Monocryl followed by the application of Dermabond. At the end of the operation I ensured that both testicles were within the scrotum. The sponge instrument count at the end operation was correct. The patient emerged from anesthesia was extubated and transferred to the postoperative care unit in stable condition. A total of 30 ml of of 0.25% bupivicaine was used to infiltrate the skin. Complications: none Post-operative Condition: stable Disposition: same day surgery
[2023-01-06] MEDS: OXYCODONE IR 5 MG TABLET PO (15:55)
--- NOTE | 2023-01-06 16:32 | SUR.PHASEII ---
pt is in bathroom and voided. His is helping him dress. pt pleasant and cooperative and ate some crackers and stated his pain was not that bad. Pt to be discharged with his . pt is a minimal assist transfer due to his Lewy body dementia. Pt states his pain under control and dressing dry and intact. Pt's is in the bathroom helping him get dressed.
== END 2023-01-06 16:44 | disposition home or self-care (01) ==
PROVIDERS: Family Provider Family Medicine; PCP Family Medicine; Referring Provider Surgery; Visit Provider Surgery
PROC: (CPT 49505; principal; 2023-01-06 14:00)
DX: K40.90 Unilateral inguinal hernia, without obstruction or gangrene, not specified as recurrent (principal); G20 Parkinson's disease; G31.83 Neurocognitive disorder with Lewy bodies; F02.80 Dementia in other diseases classified elsewhere, unspecified severity, without behavioral disturbance, psychotic disturbance, mood disturbance, and anxiety; D17.6 Benign lipomatous neoplasm of spermatic cord
CPT/HCPCS: 49505; 82962; J0690; J2704

== ENCOUNTER 2023-08-28 18:27 | Emergency (ER) | payer SELFPAY ==
[2023-08-28 18:34] VITALS: BP 109/64; PULSE 55; RESP 18; TEMP 36.8; O2SAT 98; BMI 23.5
[2023-08-28 19:55] VITALS: PULSE 59; O2SAT 99
[2023-08-28 19:56] VITALS: BP 143/82; PULSE 58; RESP 17; O2SAT 99
[2023-08-28 20:00] VITALS: BP 138/82; PULSE 58; RESP 17; O2SAT 99
[2023-08-28 20:08] LABS: Appearance Urine UA CLEAR; Bilirubin Urine UA NEGATIVE (NEGATIVE); Color Urine UA ORANGE; Glucose Urine UA NEGATIVE (Negative); Ketones Urine UA TRACE (NEGATIVE); Leukocyte Esterase Urine UA NEGATIVE (NEGATIVE); Nitrite Urine UA NEGATIVE (Negative); Occult Blood Urine UA NEGATIVE (Negative); Protein Urine UA NEGATIVE (Negative); Urobilinogen Urine UA 0.2 E.U./dL (0.2); pH Urine UA 5.5 (4.5-8.0)
[2023-08-28 20:30] VITALS: BP 123/67; PULSE 53; RESP 17; O2SAT 97
[2023-08-28 20:33] LABS: Add Manual Diff / Slide Review NO; Basophils Absolute Auto 0 /uL (0-100); Basophils Percent Auto 0.3 % (0-2); Eosinophils Absolute Auto 100 /uL (0-450); Eosinophils Percent Auto 0.8 % (2-4); Hematocrit 38.9 % (41-53); Hemoglobin 13.2 g/dL (13.5-17.5); Lymphocytes Absolute Auto 1100 /uL (1100-4500); Lymphocytes Percent Auto 17.2 % (25-40); Mean Corpuscular Hemoglobin 31.2 PG (26-34); Mean Corpuscular Volume 91.6 fL (80-100); Monocytes Absolute Auto 700 /uL (0-900); Monocytes Percent Auto 11.1 % (3-14); Neutrophils Absolute Auto 4700 /uL (1500-7000); Neutrophils Percent Auto 70.6 % (50-75); Platelet Count 236 X10^3/uL (150-400); Red Blood Cell Count 4.24 X10^6/uL (4.5-5.9); Red Cell Distribution Width 13.7 % (11.6-14.8); White Blood Cell Count 6.6 X10^3/uL (4.5-11.0)
[2023-08-28 20:44] LABS: Alanine Aminotransferase 8 IU/L (<50); Albumin 3.8 g/dL (3.5-5.0); Albumin Globulin Ratio 1.3 (1.0-2.8); Alkaline Phosphatase 57 U/L (38-126); Aspartate Aminotransferase 29 IU/L (17-59); BUN Creatinine Ratio 23.6 (6-22); Bilirubin Total 0.6 mg/dL (0.2-1.3); Blood Urea Nitrogen 17 mg/dL (9-20); Calcium 9.5 mg/dL (8.4-10.2); Carbon Dioxide 27 mmol/L (22-32); Chloride 105 mmol/L (98-107); Estimated Glomerular Filt Rate > 60 mL/min (>60); Glucose 91 mg/dL (80-110); HEMOLYSIS 27 (0-50); Potassium 4.1 mmol/L (3.4-5.1); Sodium 135 mmol/L (137-145); Total Protein 6.8 g/dL (6.3-8.2)
[2023-08-28 20:59] LABS: Bacteria Urine None Seen; Culture Indicated Urine Cult Not Indicated; RBC Urine 0-1/HPF (0-5/HPF); Squamous Epithelial Cell Urine None Seen (0-5/HPF); Urine Volume 10mL (spun); WBC Urine None Seen (0-5/HPF)
[2023-08-28 21:25] VITALS: BP 123/67; PULSE 53; RESP 17; O2SAT 99
--- NOTE | 2023-08-28 21:36 | ED.PSYCH ---
HPI - Psych General Chief Complaint: Psychiatric Symptoms Stated Complaint: hallucinations, sent by doctor Time Seen by Provider: 08/28/23 20:11 Source: patient and family Mode of arrival: Ambulatory History of Present Illness HPI Narrative: Patient is a 62-year-old male with diagnosis of Lewy body dementia with parkinsonian spasm presenting today with increased hallucinations. reports that they have been challenged by the insurance system neurologist leaving and other social issues. She reports increase in hallucinations he gets very scared by them. It has been ongoing for a couple of weeks does not seem to be any worse today. She called to make an appointment with PCP but unfortunately he is out of town. The provider on-call recommended coming to the emergency department to rule out infection. He has not had any fever. Seems to be appropriate now. Related Data Home Medications Medication Instructions Recorded Confirmed acetaminophen 500 mg tablet 500 mg PO Q6H PRN Pain 12/30/22 01/19/23 carbidopa ER 23.75 mg-levodopa 95 4 cap PO TID 12/30/22 01/19/23 mg capsule,extended release (Rytary) galantamine 24 mg 24 hr 24 mg PO QAM 12/30/22 01/19/23 capsule,extended release pramipexole 0.25 mg tablet 0.125 mg PO BEDTIME 12/30/22 01/19/23 quetiapine 25 mg tablet 25 mg PO BEDTIME 12/30/22 01/19/23 Previous Rx's Medication Instructions Recorded omeprazole 20 mg capsule,delayed 20 mg PO BID gastritis #60 caps 09/04/18 release Allergies Allergy/AdvReac Type Severity Reaction Status Date / Time rasagiline AdvReac Hallucinati Verified 01/19/23 10:17 ng Patient History Medical History Anesthesia complication GERD (gastroesophageal reflux disease) Kidney stones Lewy body dementia Parkinsons disease Surgical History History of esophagogastroduodenoscopy (EGD) (09/04/18) Hx of colonoscopy (09/04/18) Social History marital status: household members: spouse occupational status: employed Smoking Status: Never smoker alcohol intake: never Smoking Status: Never smoker Substance Use Type: does not use Exam Initial Vital Signs Initial Vital Signs: Vital Signs Temperature 98.3 F 08/28/23 18:34 Pulse Rate 55 L 08/28/23 18:34 Respiratory Rate 18 08/28/23 18:34 Blood Pressure 109/64 08/28/23 18:34 Pulse Oximetry 98 08/28/23 18:34 Oxygen Delivery Method Room Air 08/28/23 18:34 GENERAL: Thin alert calm 62-year-old male HEENT: Head atraumatic,EOMI, pupils reactive, face symmetric, moist mucous membranes CARDIOVASCULAR: Regular rate and rhythm without murmurs, rubs or gallops. RESPIRATORY: Breath sounds equal bilaterally, no wheezes rales or rhonchi. EXTREMITIES: Normal range of motion, no clubbing or edema. Neurovascularly intact NEUROLOGICAL: Moving all extremities at baseline SKIN: Warm, dry, no laceration, no petechiae, no rashes or lesions. Course Orders Ordered: ED Orders 08/28/23 19:50 Urinalysis and Microscopic Stat 08/28/23 20:26 CBC Auto Diff [Complete Blood Count AUTO DIFF] Stat CMP [Comprehensive Metabolic Panel] Stat Vital Signs Vital signs: Vital Signs - 8 hr 08/28/23 18:34 08/28/23 19:55 08/28/23 19:56 Temperature 98.3 F Pulse Rate 55 L 59 L Respiratory Rate 18 Blood Pressure 109/64 143/82 H Pulse Oximetry 98 99 Oxygen Delivery Method Room Air 08/28/23 19:56 08/28/23 20:00 08/28/23 20:00 Temperature Pulse Rate 58 L 58 L Respiratory Rate 17 17 Blood Pressure 138/82 Pulse Oximetry 99 99 Oxygen Delivery Method Room Air Room Air 08/28/23 20:30 08/28/23 20:30 08/28/23 21:25 Temperature Pulse Rate 53 L 53 L Respiratory Rate 17 17 Blood Pressure 123/67 123/67 Pulse Oximetry 97 99 Oxygen Delivery Method Room Air Room Air 08/28/23 22:07 Temperature Pulse Rate Respiratory Rate Blood Pressure Pulse Oximetry Oxygen Delivery Method Room Air MDM - Psych Lab Data 08/28/23 20:26 08/28/23 20:26 Labs: Lab Results 08/28/23 08/28/23 Range/Units 19:50 20:26 WBC 6.6 (4.5-11.0) X10^3/uL RBC 4.24 L (4.5-5.9) X10^6/uL Hgb 13.2 L (13.5-17.5) g/dL Hct 38.9 L (41-53) % MCV 91.6 (80-100) fL MCH 31.2 (26-34) PG MCHC 34.0 (30-36) % RDW 13.7 (11.6-14.8) % Plt Count 236 (150-400) X10^3/uL Neut % (Auto) 70.6 (50-75) % Lymph % (Auto) 17.2 L (25-40) % [place] % (Auto) 11.1 (3-14) % Eos % (Auto) 0.8 L (2-4) % Baso % (Auto) 0.3 (0-2) % Neut # (Auto) 4700 (4349-5440) /uL Lymph # (Auto) 1100 (3558-3742) /uL [place] # (Auto) 700 (0-900) /uL Eos # (Auto) 100 (0-450) /uL Baso # (Auto) 0 (0-100) /uL Sodium 135 L (137-145) mmol/L Potassium 4.1 (3.4-5.1) mmol/L Chloride 105 (98-107) mmol/L Carbon Dioxide 27 (22-32) mmol/L BUN 17 (9-20) mg/dL Creatinine 0.72 (0.66-1.25) mg/dL Estimated GFR > 60 (>60) mL/min BUN/Creatinine Ratio 23.6 H (6-22) Glucose 91 (80-110) mg/dL Calcium 9.5 (8.4-10.2) mg/dL Total Bilirubin 0.6 (0.2-1.3) mg/dL AST 29 (17-59) IU/L ALT 8 (<50) IU/L Alkaline Phosphatase 57 (38-126) U/L Total Protein 6.8 (6.3-8.2) g/dL Albumin 3.8 (3.5-5.0) g/dL Globulin 3.0 (1.7-4.1) g/dL Albumin/Globulin Ratio 1.3 (1.0-2.8) Urine Color [place] Urine Appearance Clear Urine pH 5.5 (4.5-8.0) Ur Specific [place] 1.020 (1.000-1.035) Urine Protein Negative (Negative) Urine Glucose (UA) Negative (Negative) g/dL Urine Ketones Trace H (NEGATIVE) Urine Occult Blood Negative (Negative) Urine Nitrate Negative (Negative) Urine Bilirubin Negative (NEGATIVE) Urine Urobilinogen 0.2 (0.2) E.U./dL Ur Leukocyte Esterase Negative (NEGATIVE) Urine RBC 0-1/hpf (0-5/HPF) Urine WBC None seen (0-5/HPF) Ur Squamous Epith Cells None seen (0-5/HPF) Urine Bacteria None seen (None) Ur Culture Indicated? Cult not indicated Vol Urine Centrifuged 10ml (spun) MDM Narrative Medical decision making narrative: Patient is 62-year-old male with Lewy body dementia and parkinsonism presenting today with increased hallucinations. It does not sound as though it is acute. But maybe becoming more bothersome. It sounds as though they have had challenges with insurance and disability and providers leaving. They currently do not have a neurologist trying to get 1 but were waiting for insurance now they have disability but no insurance. Seems to be very complicated. Blood work has been reviewed no acute abnormality no evidence of infection urinalysis is also clear. Discuss with and patient possible head CT however at this time they do not feel like it is necessary which I agree. Does not change outcome. At this time offered medication however they decline at this time they just wanted to make sure that there was no infection which is reasonable. They are happy to go home and make an appointment with PCP. Discharge Plan Departure Patient Disposition: Home Clinical Impression: Hallucinations Instructions: Lewy Body Disease Activity Restrictions/Additional Instructions: *You have been diagnosed with dementia with hallucinations *What to do: At this time please follow-up with PCP for guidance. *Continue to take medications as directed *Follow up with your primary care provider in 2-3 days or call [phone] *Return to ER if you should have increased hallucinations fever confusion or any new, worsening or concerning symptoms Prescriptions: No Action galantamine 24 mg capsule,ext rel. pellets 24 hr 24 mg PO QAM Rx Instructions: administer with breakfast Rytary 23.75-95 mg capsule, extended release 4 cap PO TID quetiapine 25 mg tablet 25 mg PO BEDTIME pramipexole 0.25 mg tablet 0.125 mg PO BEDTIME acetaminophen 500 mg tablet 500 mg PO Q6H PRN (Reason: Pain) omeprazole 20 mg capsule,delayed release(DR/EC) 20 mg PO BID Qty: 60 3RF Referrals: Miguel A Peng MD [Primary Care Provider] - Stand Alone Forms: Patient Portal/API
== END 2023-08-28 22:17 | disposition home or self-care (01) ==
PROVIDERS: Emergency Provider Emergency Medicine; Family Provider Family Medicine; PCP Family Medicine
DX: R44.3 Hallucinations, unspecified (principal)
CPT/HCPCS: 36415; 80053; 81001; 85025; 99284

== ENCOUNTER → 2024-08-22 11:38 | Outpatient (ROUT) | payer OTHER, SELFPAY ==
[2024-08-22 11:53] LABS: Albumin 4.1 g/dL (3.5-5.0); BUN Creatinine Ratio 21.8 (6-22); Blood Urea Nitrogen 17 mg/dL (9-20); Calcium 9.5 mg/dL (8.4-10.2); Carbon Dioxide 22 mmol/L (22-32); Chloride 106 mmol/L (98-107); Estimated Glomerular Filt Rate > 60 mL/min (>60); Glucose 116 mg/dL (80-110); HEMOLYSIS < 15 (0-50); Phosphorous 3.2 mg/dL (2.3-3.7); Potassium 4.4 mmol/L (3.4-5.1); Sodium 137 mmol/L (137-145)
== END ==
PROVIDERS: Family Provider Family Medicine; PCP Family Medicine; Visit Provider Family Medicine
DX: G20.C Parkinsonism, unspecified (principal)
CPT/HCPCS: 80069